=== PATIENT | female | born 1940 | race Caucasian/White ===

== ENCOUNTER 2023-12-01 14:04 | Outpatient (AMB) | payer MEDICARE, SELFPAY ==
--- NOTE | 2023-12-01 14:06 | MHC.OFFWIV ---
Intake Vital Signs 12/01/23 14:10 Height 5 ft 1 in Weight 124 lb BMI 23.4 BP 130/90 H Blood Pressure Location Lt brachial Position Sitting Pulse 112 H Pulse Source Pulse Oximeter Temp 97.5 F Temp Source Temporal Artery Scan Pulse Oximetry (%) 97 Oxygen Delivery Method Room Air Intake Visit Reasons: LINUX CONSULTANT Elevated BP 190/90/Head/heart racing Intake Note: pt is here today elevated 190/90 head heart racing yesterday Patient Tobacco Use Status: Never used Tobacco Allergies Penicillins [PCN] Allergy (Mild, Verified 12/01/23 14:15) RASH hydrochlorothiazide [HYDROCHLOROTHIAZIDE] Allergy (Unknown, Verified 12/01/23 14:15) RASH Do you need a note to return to daycare/school/sports/work: No HPI LINUX CONSULTANT Elevated BP 190/90/Head/heart racing HPI Details 83-year-old female presents to the office for a sick visit. Patient had a stressful event yesterday and felt her heart was pounding. She went home and fell asleep. She woke up this morning and still felt her heart was pounding a little. She went to her neighbor's house in her blood pressure was recorded 190/90. Patient comes in for a follow-up visit. Her agitation has reduced. She lives alone. She has no family members around here. Denies any chest pains or shortness of breath. No nausea or vomiting. [facility] Medical History (Updated 12/01/23 @ 15:01 by Brown Santana MD) Essential hypertension Atrial fibrillation Social History Patient Tobacco Use Status: Never used Tobacco Physical Exam Vital Signs: Last Vital Signs Temp 97.5 F 12/01/23 14:10 Pulse 112 H 12/01/23 14:10 BP 130/90 H 12/01/23 14:10 Pulse Ox 97 12/01/23 14:10 Oxygen Delivery Method Room Air 12/01/23 14:10 BMI result Body Mass Index 23.4 Const General: cooperative and healthy appearing Nutritional Appearance: well nourished Orientation/consciousness: patient oriented x3 Limitations: no limitations HEENT Head: Yes normal to inspection Eyes General: appearance normal, both eyes and all related structures Neck Neck: Yes normal visual inspection Chest Chest palpation & inspection: normal palpation of entire chest wall Resp Effort & Inspection: normal respiratory effort Neuro General: patient oriented x3 Office Procedures EKG Details: Atrial fibrillation. Rate is 104 per minute [id number], Complete Assessment & Plan Assessment & Plan (1) Atrial fibrillation: Code(s): I48.91 - Unspecified atrial fibrillation Plan: EKG shows new onset atrial fibrillation. Patient is unaware of a previous diagnosis. She lives alone and has no family members around here. She has a brother in [place]. Anticoagulants were started. Chads score is 2. Case was discussed with dairy feed mixing operator at [facility] was promised to see the patient in the coming week. Patient was advised to take the beta-ronaldo and other medications. Blood work has been ordered. Orders: Orders AMB EKG-In Office Today R07.9 - Chest pain, unspecified Lipid Panel Today I48.91 - Unspecified atrial fibrillation Thyroid Stimulating Hormone Today I48.91 - Unspecified atrial fibrillation Complete Blood Count no Diff Today I48.91 - Unspecified atrial fibrillation Basic Metabolic Panel Today I48.91 - Unspecified atrial fibrillation Liver Panel Today I48.91 - Unspecified atrial fibrillation Medications: New apixaban (Eliquis) 5 mg PO BID 30 tabs 0RF Coding Level of Care Code New Pt Level 4 (66491) Diagnoses Atrial fibrillation I48.91 CPT Codes EKG - CPT: 36833-[id number], Complete ([id number])
[2023-12-01 14:10] VITALS: BP 130/90; PULSE 112; TEMP 36.4; O2SAT 97; BMI 23.4
== END 2023-12-01 15:12 | disposition home or self-care (01) ==
PROVIDERS: PCP Hospitalist; Visit Provider Internal Medicine
DX: I48.91 Unspecified atrial fibrillation (principal)
CPT/HCPCS: 93000; 99204

== ENCOUNTER 2023-12-01 14:59 | Outpatient (REF) | payer MEDICARE, SELFPAY ==
[2023-12-01 17:12] LABS: Hematocrit 46.1 % (37.0-47.0); Hemoglobin 15.1 g/dl (12.0-16.0); Mean Corpuscular HGB Conc 32.8 g/dl (31.0-35.0); Mean Corpuscular Hemoglobin 30.3 pg (27.0-33.0); Mean Corpuscular Volume 92.6 fL (80.0-98.0); Mean Platelet Volume 9.9 fL (9.4-12.3); Platelet Count 307 X10*3/uL (160-400); Red Blood Count 4.98 X10*6/uL (4.20-5.50); Red Cell Distribution Width 12.5 % (11.0-16.0); White Blood Count 11.7 X10*3/uL (4.8-10.8)
[2023-12-01 17:14] LABS: Alanine Aminotransferase 11 U/L (0-31); Albumin Level 4.3 g/dL (3.5-5.0); Alkaline Phosphatase 44 U/L (39-117); Anion Gap 13 (12-20); Aspartate Amino Transferase 24 U/L (5-31); Bilirubin Direct 0.2 mg/dL (0.0-0.5); Bilirubin Total 0.4 mg/dL (0.0-1.0); Blood Urea Nitrogen 16 mg/dL (9-16); Calcium 10.4 mg/dL (8.4-10.2); Carbon Dioxide 28 mmol/L (22-29); Chloride 102 mmol/L (96-108); Cholesterol 240 mg/dL (<200); Estimated Glomerular Filt Rate 60; Glucose Random 112 mg/dL (60-115); HDL Cholesterol 51 mg/dL (>40); LDL Cholesterol Calculated 157 mg/dL (<100); Potassium 4.7 mmol/L (3.3-5.1); Sodium 138 mmol/L (135-145); Total Protein 7.9 g/dL (6.5-8.0); Triglycerides 164 mg/dL (<150)
[2023-12-01 17:30] LABS: Thyroid Stimulating Hormone 1.97 uIU/mL (0.32-4.0)
== END 2023-12-01 15:00 | disposition home or self-care (01) ==
LOC: HO.HMGCLDS 14:59
PROVIDERS: PCP Family Medicine; Visit Provider Internal Medicine
DX: I48.91 Unspecified atrial fibrillation (principal)
CPT/HCPCS: 36415; 80048; 80061; 80076; 84443; 85027

== ENCOUNTER 2023-12-06 10:34 | Outpatient (AMB) | payer MEDICARE, SELFPAY ==
--- NOTE | 2023-12-06 10:41 | A.OFFVIS_ITS ---
Intake Vital Signs 12/06/23 10:42 Height 5 ft 1 in Weight 121 lb 4.068 oz BMI 22.9 BP 180/90 H Blood Pressure Location Lt brachial Position Sitting Pulse 92 Intake Visit Reasons: NPV/V/ Intake Note: NPV Acoustical Carpenter Required: No Accompanied by: Self / Same As Patient Allergies Penicillins [PCN] Allergy (Mild, Verified 12/06/23 10:43) RASH hydrochlorothiazide [HYDROCHLOROTHIAZIDE] Allergy (Unknown, Verified 12/06/23 10:43) RASH Medication List - Last Reconciled 12/06/23 by Dav Bazan MD alprazolam 0.5 mg PO apixaban (Eliquis) 5 mg PO BID citalopram 20 mg PO DAILY lisinopril 30 mg PO DAILY metoprolol succinate ER 100 mg PO DAILY sulfasalazine 1,000 mg PO BID HPI HPI Comments History of Present Illness Details Brittanie is here for consultation regarding atrial fibrillation. Recently, she had an episode of palpitations and that led to urgent care visit. She was diagnosed with atrial fibrillation which is new finding. She states that she has not had this problem before. She thinks she was cleaning snow on the car day or so prior to that and she was doing very vigorously and hence she is wondering if that was reason. Any case, not entirely clear. No other complaints like angina or shortness of breath. No other cardiac issues. She is reasonably healthy for age. On medications for high blood pressure. Last week, it seems that she was started on Eliquis. She is on beta-blockers as well but apparently that is a long-term medication. [facility] Medical History (Updated 12/01/23 @ 15:01 by Brown Santana MD) Essential hypertension Atrial fibrillation Surgical History (Updated 12/06/23 @ 10:44 by Misa Harrington) No pertinent past surgical history Family History (Updated 12/06/23 @ 10:44 by Misa Harrington) Mother Heart problem Brother Heart problem Social History Patient Tobacco Use Status: Never used Tobacco Review of Systems Const Denies chills, Denies daytime sleepiness, Denies fatigue, Denies fever(s), Denies frequent falls, Denies night sweats, Denies snoring, Denies weakness, Denies weight gain and Denies weight loss Eyes Denies loss of vision ENT Denies dizziness and Denies hearing loss Card Denies chest pain, Denies chest pain with activity, Denies syncope, Denies rapid heart rate, Denies edema, Denies claudication, Denies leg edema, Denies lightheadedness, Denies palpitations, Denies dyspnea, Denies dyspnea on exertion and Denies orthopnea Resp Denies cough, Denies excessive phlegm production, Denies dyspnea, Denies dyspnea on exertion, Denies snoring and Denies wheezing GI Denies abdominal pain, Denies hematochezia, Denies change in bowel habits, Denies change in stool character, Denies heartburn, Denies nausea and Denies vomiting Denies hematuria, Denies urinary frequency and Denies dysuria Musc Denies arthralgias, Denies muscle weakness, Denies numbness and Denies tingling Skin/Breast Denies nail changes and Denies rash Neuro Denies Abnormal speech present, Denies dizziness, Denies syncope, Denies frequent falls, Denies loss of vision, Denies memory loss, Denies numbness, Denies tingling and Denies weakness Psych Denies depression and Denies memory loss Endo Denies fatigue and Denies palpitations Aller/Immun Denies wheezing Physical Exam Vital Signs: Last Vital Signs Pulse 92 12/06/23 10:42 BP 180/90 H 12/06/23 10:42 BMI result Body Mass Index 22.9 Const General: comfortable and no acute distress Orientation/consciousness: patient oriented x3 HEENT Other: Unremarkable Head: Yes normal to inspection Neck Neck: Yes normal visual inspection Chest Chest palpation & inspection: normal inspection of the chest Resp Auscultation: clear to auscultation bilaterally Cardio Palpation: normal PMI Heart sounds: S1 normal heart sound present, S2 normal heart sound present, no gallops, no murmurs and no rubs GI Palpation (GI): Soft to palpation Back/Spine/Pelvis Other: unremarkable Skin General skin exam: no rashes or lesions noted Neuro General: patient oriented x3 Speech: No Abnormal speech present Extrem General: Yes normal to inspection Psych Mental Status: mental status grossly normal Assessment & Plan Assessment & Plan (1) Atrial fibrillation: Code(s): I48.91 - Unspecified atrial fibrillation Plan: EKG from last week shows atrial fibrillation at a rate of 104/Min; can not exclude old septal infarct but could be from body habitus; nonspecific ST-T changes. We will arrange further workup with echocardiogram and Holter monitor. She is already on anticoagulation. Based on her age as well as weight, we can change Eliquis to 2.5 mg b.i.d.. If she is tachycardic on Holter, then may need to increase beta-blockers or add another agent like diltiazem or digoxin. (2) Essential hypertension: Code(s): I10 - Essential (primary) hypertension Plan: She states she is very anxious today. Last week, blood pressure was 130/90 mm Hg. Will need to keep an eye on this. May need more meds if the trend continues. Tried to reassure her as much. Orders: Orders CA echo transthoracic complete Today I48.91 - Unspecified atrial fibrillation ECG 3 day holter monitor Today I48.91 - Unspecified atrial fibrillation, R00.2 - Palpitations Medications: New apixaban (Eliquis) 2.5 mg PO BID 180 tabs 3RF 90 days I48.91 - Unspecified atrial fibrillation Discontinued apixaban (Eliquis) Discontinued Reason: Doctor's Order 5 mg PO BID 30 tabs 0RF Coding Level of Care Code New Pt Level 4 (28161) Diagnoses Atrial fibrillation I48.91 Essential hypertension I10
[2023-12-06 10:42] VITALS: BP 180/90; PULSE 92; BMI 22.9
== END 2023-12-06 10:57 | disposition home or self-care (01) ==
PROVIDERS: PCP Family Medicine; Visit Provider Internal Medicine
DX: I48.91 Unspecified atrial fibrillation (principal); I10 Essential (primary) hypertension
CPT/HCPCS: 99204

== ENCOUNTER → 2023-12-06 10:34 | Outpatient (BNVA) | payer MEDICARE, SELFPAY | PROVIDERS: PCP Family Medicine; Visit Provider Internal Medicine | DX: I48.91 Unspecified atrial fibrillation (principal); I10 Essential (primary) hypertension | CPT/HCPCS: 99202 ==

== ENCOUNTER → 2024-01-04 14:00 | Outpatient (REF) | payer MEDICARE, SELFPAY ==
--- NOTE | 2024-01-04 14:03 | CA_ITS ---
Transthoracic Echocardiogram Patient (Last, First, Middle): Brittanie Baltazar S Gender: Female Date of : 1940 Age: 83 Procedure Date: 01/04/2024 Procedure Type: Transthoracic Echocardiogram Location: OP Height: 154.94 cm Weight: 54.89 kg BSA: 1.53 m2 Heart Rate: bpm BP: 146 / 80 mmHg Technology Recruiter: TO Referring MD: Dav Bazan MD Symptoms: I48.91 - Unspecified atrial fibrillation Study Quality: Fair ECG Rhythm: Atrial Fibrillation Conclusions: - The left ventricular systolic function is hyperdynamic. The visually estimated ejection fraction is >70%. - There is moderate mitral annular calcification. There is mild mitral valve regurgitation. - The left atrium is severely dilated. Findings Left Ventricle Normal left ventricular cavity size. There is mildly increased left ventricular wall thickness. The left ventricular systolic function is hyperdynamic. The visually estimated ejection fraction is >70%. There is no evidence of regional wall motion abnormalities. Diastolic function is indeterminate on the basis of available data. Right Ventricle Normal right ventricular cavity size. There is moderately decreased right ventricular systolic function. Atria The left atrium is severely dilated. The right atrium is normal in size. Aortic Valve There is a normal trileaflet aortic valve. There is no aortic valve stenosis. There is no aortic valve regurgitation. Mitral Valve There is moderate mitral annular calcification. There is mild mitral valve regurgitation. There is no mitral valve stenosis. Pulmonic Valve There is trace to mild pulmonic valve regurgitation. Tricuspid Valve There is trace tricuspid valve regurgitation. There is no evidence of pulmonary hypertension. Great Vessels The asc aorta is normal in size. Venous The inferior vena cava is normal in size and collapses greater than 50% with inspiration. Pericardium/Pleural There is no evidence of pericardial effusion. Prior Study Comparison No prior study available for comparison. Measurements 2D Linear Measurements IVSd: 1.25 0.6-0.9/0.6-1.0 cm LVIDd: 3.69 3.9-5.3/4.2-5.9 cm LVIDd Index: 2.41 2.4-3.2/2.2-3.1 cm/m2 LVIDs: 2.27 2.0-3.6 cm LVPWd: 1.26 0.7-1.1 cm LA Diam: 3.50 2.7-3.8/3.0-4.0 cm LAIDs Index: 2.29 1.5-2.3 cm/m2 LV Mass: 195.61 67-162/88-224 g LV Mass Index: 127.85 43-95/49-115 g/m2 LVOT Diam: 1.90 3.0+(-)1.3 cm 2D Systolic Function EF 2C: 70.90 >55% Mitral Valve MV VTI: 0.22 MV Pk Norman: 1.47 MV Mn Norman: 0.93 MV Pk Grad: 9.00 MV Mn Grad: 4.00 MV Pk E: 1.17 MV Decel Time: 166.00 E'Lateral: 6.42 E'Medial: 5.58 E/E' Med: 21.00 E/E' Lat: 18.20 PHT: 49.00 MVA PHT: 4.49 MVA Continuity: 2.45 Decel Sandoval: 7.12 Aortic Valve AoV Pk Norman: 1.09 AoV Mn Norman: 0.81 AoV VTI: 0.21 AoV Pk Grad: 5.00 Aov Mn Grad: 3.00 SHAWANDA Cont.VTI: 2.61 LVOT LVOT Pk Norman: 0.95 LVOT Mn Norman: 0.69 LVOT VTI: 0.19 LVOT Pk Grad: 4.00 LVOT Mn Grad: 2.00 LVOT Diam: 1.90 LVOT Area: 2.84 Diastolic Function MV Pk E: 1.17 E'Medial: 5.58 E/E' Med: 21.00 E' Laterial: 6.42 E/E' Lat: 18.20 Right Ventricle TAPSE (mm): 11.40 TVS' Norman: 7.51 Tricuspid Valve TR Pk Norman: 2.30 TR Pk Grad: 21.00 RA Press: 3.00 RVSP: 24.00 Great Vessels Aorta Sinus of Valsalva: 2.95 2.0-3.5 cm Ao Asc: 2.80 2.1-3.4 cm Updated in Other Vendor System with Status of Final Dav Bazan MD electronically signed on 01/05/2024 9:15:51 AM with status of Final
--- NOTE | 2024-01-04 14:03 | HM_ITS ---
Conclusion: 1. Patient was monitored for total period of 3 days and 2 hours 2. Baseline was atrial fibrillation with average heart of 84 beats per minute with adequate rate control 3. No significant pauses noted 4. Rare PVCs noted 5. No patient reported events MTDD
== END ==
LOC: HO.CARD 14:00
PROVIDERS: PCP Family Medicine; Visit Provider Internal Medicine
DX: R00.2 Palpitations (principal); I48.91 Unspecified atrial fibrillation
CPT/HCPCS: 93242; 93306

== ENCOUNTER → 2024-01-04 14:03 | Outpatient (BNV) | payer MEDICARE, SELFPAY | PROVIDERS: PCP Family Medicine; Visit Provider Internal Medicine | DX: I48.91 Unspecified atrial fibrillation (principal) | CPT/HCPCS: 93244; 93306 ==

== ENCOUNTER 2024-02-01 13:40 | Outpatient (AMB) | payer MEDICARE, SELFPAY ==
--- NOTE | 2024-02-01 13:45 | MHC.OFFVIS ---
Intake Vital Signs 02/01/24 13:47 Height 5 ft 1 in Weight 123 lb 7.342 oz BMI 23.3 BP 156/86 H Blood Pressure Location Lt brachial Position Sitting Pulse 95 Intake Visit Reasons: 2 mth s/p echo/ holter Intake Note: 2 month follow up Financial Planning Consultant Required: No Allergies Penicillins [PCN] Allergy (Mild, Verified 02/01/24 13:48) RASH hydrochlorothiazide [HYDROCHLOROTHIAZIDE] Allergy (Unknown, Verified 02/01/24 13:48) RASH Medication List - Last Reconciled 02/01/24 by Dav Bazan MD alprazolam 0.5 mg PO apixaban (Eliquis) 2.5 mg PO BID 90 days citalopram 20 mg PO DAILY lisinopril 30 mg PO DAILY metoprolol succinate ER 100 mg PO DAILY sulfasalazine 1,000 mg PO BID HPI HPI Comments History of Present Illness Details Brittanie returns for follow-up. Recently seen in consultation regarding atrial fibrillation. She had palpitations and went to urgent care and was then diagnosed with atrial fibrillation. Overall, she feels fine. No clear-cut cardiac symptoms like angina or palpitations or anything else. Reasonably healthy for age. Blood pressure seems high but she has not really clear if it is always this way or not. She is on beta-blockers but that is something long-term. [facility] Medical History (Updated 02/01/24 @ 14:12 by Dav Bazan MD) Essential hypertension Atrial fibrillation Surgical History No pertinent past surgical history Family History Mother Heart problem Brother Heart problem Social History Patient Tobacco Use Status: Never used Tobacco Review of Systems Const Denies weakness ENT Denies dizziness Card Denies chest pain, Denies chest pain with activity, Denies syncope, Denies rapid heart rate, Denies pedal edema, Denies edema, Denies leg edema, Denies lightheadedness, Denies palpitations, Denies dyspnea, Denies dyspnea on exertion and Denies orthopnea Resp Denies cough, Denies dyspnea and Denies dyspnea on exertion GI Denies hematochezia and Denies change in stool character Musc Denies abnormal gait, Denies muscle cramps, Denies muscle weakness, Denies numbness, Denies radiating pain into limb and Denies tingling Neuro Denies abnormal gait, Denies dizziness, Denies syncope, Denies numbness, Denies tingling and Denies weakness Endo Denies palpitations Physical Exam Vital Signs: Last Vital Signs Pulse 95 02/01/24 13:47 BP 156/86 H 02/01/24 13:47 BMI result Body Mass Index 23.3 Const General: comfortable and no acute distress Orientation/consciousness: patient oriented x3 HEENT Other: Unremarkable Head: Yes normal to inspection Neck Neck: Yes normal visual inspection Chest Chest palpation & inspection: normal inspection of the chest Resp Auscultation: clear to auscultation bilaterally Cardio Palpation: normal PMI Heart sounds: S1 normal heart sound present, S2 normal heart sound present, no gallops, no murmurs and no rubs GI Palpation (GI): Soft to palpation Back/Spine/Pelvis Other: unremarkable Skin General skin exam: no rashes or lesions noted Neuro General: patient oriented x3 Extrem General: Yes normal to inspection Psych Mental Status: mental status grossly normal Assessment & Plan Assessment & Plan (1) Atrial fibrillation: Code(s): I48.91 - Unspecified atrial fibrillation Plan: Echocardiogram with hyperdynamic LVEF. Left atrium severely dilated. This may indicate chronicity. In the Holter, underlying rhythm is atrial fibrillation average rate of 84/Min. Reasonable rate control. About 7% of the time, rate is greater than 100/Min. We can probably go up on the beta-ronaldo dosing especially as the blood pressure is also high. (2) Essential hypertension: Code(s): I10 - Essential (primary) hypertension Plan: Blood pressure seems to be on the higher side. Today it is 156/86 mm Hg. Last time, it was 180/90 mm Hg. We will go up on the beta-ronaldo dosing. (3) Mitral annular calcification: Code(s): I34.81 - Nonrheumatic mitral (valve) annulus calcification Plan: There is no significant valvular dysfunction. No specific management. Medications: New metoprolol succinate ER (Toprol XL) Total 150mg (100mg+50mg) daily 50 mg PO DAILY 90 tabs 3RF 90 days Coding Level of Care Code Est Pt Level 4 (86167) Diagnoses Atrial fibrillation I48.91 Essential hypertension I10 Mitral annular calcification I34.81
[2024-02-01 13:47] VITALS: BP 156/86; PULSE 95; BMI 23.3
== END 2024-02-01 14:08 | disposition home or self-care (01) ==
PROVIDERS: PCP Family Medicine; Visit Provider Internal Medicine
DX: I48.91 Unspecified atrial fibrillation (principal); I10 Essential (primary) hypertension; I34.81 Nonrheumatic mitral (valve) annulus calcification
CPT/HCPCS: 99214

== ENCOUNTER → 2024-02-01 13:40 | Outpatient (BNVA) | payer MEDICARE, SELFPAY | PROVIDERS: PCP Family Medicine; Visit Provider Internal Medicine | DX: I48.91 Unspecified atrial fibrillation (principal); I10 Essential (primary) hypertension; I34.81 Nonrheumatic mitral (valve) annulus calcification | CPT/HCPCS: 99212 ==

== ENCOUNTER → 2024-04-25 13:47 | Outpatient (BNVA) | payer MEDICARE, SELFPAY | PROVIDERS: PCP Family Medicine; Visit Provider Nurse Practitioner Family ==

== ENCOUNTER 2024-06-01 14:03 | Outpatient (AMB) | payer MEDICARE, SELFPAY ==
[2024-06-01 14:25] VITALS: BP 152/80; PULSE 78; BMI 22.7
--- NOTE | 2024-06-01 14:25 | A.OFFVIS_ITS ---
Vital Signs 06/01/24 14:25 Height 5 ft 1 in Weight 120 lb 5.958 oz BMI 22.7 BP 152/80 H Blood Pressure Location Rt brachial Position Sitting Pulse 78 Pulse Source Monitor Intake Visit Reasons: r/s by pt Clay Roaster Required: No Allergies Penicillins [PCN] Allergy (Mild, Verified 06/01/24 14:27) RASH hydrochlorothiazide [HYDROCHLOROTHIAZIDE] Allergy (Unknown, Verified 06/01/24 14:27) RASH Medication List - Last Reconciled 06/01/24 by Mayelin Roy NP-C alprazolam 0.5 mg PO apixaban (Eliquis) 2.5 mg PO BID 90 days citalopram 20 mg PO DAILY lisinopril 30 mg PO DAILY metoprolol succinate ER (Toprol XL) 150 mg (3 x 50 mg) PO DAILY 90 days sulfasalazine 1,000 mg PO BID HPI HPI r/s by pt: Details: Brittanie is an 83-year-old female with past medical history of hypertension, atrial fibrillation who presents for follow-up. Today she reports she has been feeling well since her last visit in January. She does not notice heart palpitations. No chest discomfort at rest or with activity. No shortness of breath, PND, orthopnea or edema. No lightheadedness, presyncope, syncope, falls. Reports good activity tolerance. Lives alone has to manage her home and ADLs independently. Takes all meds as directed. No bleeding issues reported. [facility] Medical History Essential hypertension Atrial fibrillation Surgical History No pertinent past surgical history Family History Mother Heart problem Brother Heart problem Social History Patient Tobacco Use Status: Never used Tobacco Review of Systems Const All systems reviewed & are unremarkable except as noted in HPI and below ENT Denies dizziness Card Denies chest pain, Denies chest pain at rest, Denies chest pain with activity, Denies rapid heart rate, Denies pedal edema, Denies edema, Denies leg edema, Denies lightheadedness, Denies palpitations, Denies dyspnea, Denies dyspnea on exertion and Denies orthopnea Resp Denies cough, Denies dyspnea and Denies dyspnea on exertion GI Denies hematochezia and Denies change in stool character Musc Denies abnormal gait, Denies limited range of motion, Denies muscle cramps, Denies muscle weakness, Denies numbness, Denies radiating pain into limb, Denies stiffness and Denies tingling Neuro Denies abnormal gait, Denies dizziness, Denies numbness and Denies tingling Endo Denies palpitations Physical Exam Vital Signs: Last Vital Signs Pulse 78 06/01/24 14:25 BP 152/80 H 06/01/24 14:25 BMI result Body Mass Index 22.7 Const General: cooperative, healthy appearing, comfortable and no acute distress Orientation/consciousness: patient oriented x3 Neck Neck: Yes normal visual inspection and Yes no JVD Resp Effort & Inspection: normal respiratory effort Auscultation: clear to auscultation bilaterally, no rales, no rhonchi and no wheezes Cardio Jugular venous distension: no JVD Rate: regular rate Rhythm: abnormal rhythm Heart sounds: S1 normal heart sound present, S2 normal heart sound present, no murmurs and no rubs Neuro General: patient oriented x3 Extrem General: Yes normal to inspection and No no pedal edema Psych Appearance: grossly normal Mental Status: mental status grossly normal Speech and movement: Normal speech and movement present Office Procedures EKG Details: Today, read by me, atrial flutter with variable AV block left axis deviation can not exclude prior anterior septal infarct, rate 78, QTC 444 millisecond [id number], Complete Assessment & Plan Assessment & Plan (1) Atrial fibrillation: Code(s): I48.91 - Unspecified atrial fibrillation Category: Medical Plan: History of atrial fibrillation, asymptomatic. Unknown chronicity. Echocardiogram was done 01/04/2024 showing EF greater than 70%, moderate mitral annular calcification, mild mitral regurgitation, left atrium severely dilated. Atrial dilation could indicate that AFib has been more chronic. Holter monitor done 01/04/2024 for 3 days shows atrial fibrillation with average heart rate 84, 7% of the time greater than 100. On last visit her metoprolol dose was increased due to mildly elevated rates. Today she reports she has been feeling quite well with no concerning symptoms. She does not notice heart palpitations. She continues on metoprolol XL 150 mg daily. She is on Eliquis 2.5 mg b.i.d. for anticoagulation. That dose is appropriate for her age and weight. No medication changes made. Cardiology follow-up 6 months, sooner if needed. (2) Essential hypertension: Code(s): I10 - Essential (primary) hypertension Category: Medical Plan: Mildly elevated today. She denies being anxious at this visit. She did take her medications today. At this time will have her continue her metoprolol and lisinopril. She follows with her PCP routinely. If her blood pressure is elevated on follow-up with PCP then lisinopril dose can be further increased. (3) Mitral annular calcification: Code(s): I34.81 - Nonrheumatic mitral (valve) annulus calcification Category: Medical Plan: As above Plan Time spent on chart review, documentation, interview and assessment Coding Level of Care Code Est Pt Level 3 (76674) Diagnoses Atrial fibrillation I48.91 Essential hypertension I10 Mitral annular calcification I34.81 CPT Codes EKG - CPT: [id number], Complete ([id number]) Time Spent (min) 24
== END 2024-06-01 15:03 | disposition home or self-care (01) ==
PROVIDERS: PCP Family Medicine; Visit Provider Nurse Practitioner Family
DX: I48.91 Unspecified atrial fibrillation (principal); I10 Essential (primary) hypertension; I34.81 Nonrheumatic mitral (valve) annulus calcification
CPT/HCPCS: 93010; 99213

== ENCOUNTER → 2024-06-01 14:03 | Outpatient (BNVA) | payer MEDICARE, SELFPAY | PROVIDERS: PCP Family Medicine; Visit Provider Nurse Practitioner Family | DX: I48.91 Unspecified atrial fibrillation (principal); I10 Essential (primary) hypertension; I34.81 Nonrheumatic mitral (valve) annulus calcification | CPT/HCPCS: 93005; 99212 ==

== ENCOUNTER 2024-12-16 11:45 | Emergency (ER) | payer MEDICARE, SELFPAY ==
--- NOTE | ~2024-12-16 | CT_ITS ---
CLINICAL HISTORY: fall, head strike, on eliquis CT maxillofacial without contrast Comparison: None Findings: No acute fractures. Temporomandibular joints are intact. Paranasal sinuses and mastoid air cells clear. There is edema of the soft tissues within the left cheek and periorbital region. Visualized intracranial contents are within normal limits. No foreign bodies. IMPRESSION: No acute displaced facial bone fracture. This document has been electronically signed by: Rhoda Rueda MD on 12/16/2024 14:35:26
--- NOTE | ~2024-12-16 | CT_ITS ---
CLINICAL HISTORY: fall, head strike, on eliquis CT cervical spine without contrast Comparison: None Findings: Trace anterolisthesis of C3 on C4, C4 on C5 and C6 on C7. Multilevel degenerative disc disease and facet osteoarthritis. No significant central canal narrowing. No acute fractures or dislocations. Visualized intracranial contents are unremarkable. Soft tissues of the neck are normal. Emphysema and scarring at the left lung apex. No consolidation or pleural effusion. IMPRESSION: No cervical spine fracture. This document has been electronically signed by: Rhoda Rueda MD on 12/16/2024 14:37:27
--- NOTE | ~2024-12-16 | XR_ITS ---
CLINICAL HISTORY: fall onto chest 1 view chest x-ray Comparison: CR/SR - CHEST 1 VIEW - 11/04/19 18:31 EST Findings: Ill-defined opacities right lower lung and throughout the left lung. Bullous change in the left lateral lung again noted. No effusion or pneumothorax. Cardiomegaly. Suspected old right humeral neck fracture. Bones osteopenic. IMPRESSION: Multifocal lung opacities. This could represent edema and/or infection. Recommend follow-up. This document has been electronically signed by: Valorie Goins MD on 12/16/2024 16:04:40
--- NOTE | ~2024-12-16 | CT_ITS ---
CLINICAL HISTORY: fall, head strike, on eliquis CT head without contrast Comparison: None Findings: No intra-axial mass, midline shift, hydrocephalus, or acute hemorrhage. Involutional change brain parenchyma, compatible with age. Moderate white matter disease. Small chronic right frontal lobe infarct. There is no sinus or mastoid fluid. The orbits are within normal limits. Left periorbital soft tissue edema. No skull fracture. IMPRESSION: No skull fracture or intracranial hemorrhage. This document has been electronically signed by: Rhoda Rueda MD on 12/16/2024 14:38:15
--- NOTE | 2024-12-16 11:48 | ED.GENADULT ---
HPI - General Adult General Chief complaint: Head Injury Stated complaint: fall, head inj, eye swelling Time Seen by Provider: 12/16/24 12:00 Source: patient Mode of arrival: ambulatory Limitations: no limitations History of Present Illness ED Provider: MARIALIUSA Lewis HPI narrative: This is an 84-year-old female history of mitral annular calcification, hypertension, atrial fibrillation recently started on Eliquis presenting to the emergency department status post slip and fall yesterday she reports that she fell on the snow, hit her head on cement, did not lose consciousness. Since then she has been having significant bruising and swelling to the left eye and left side of forehead. She reports what prompted her to come in today is her face looked very swollen. She denies headache, vision changes, chest pain, shortness of breath, nausea, vomiting, abdominal pain, dizziness and weakness. Denies preceding symptoms to fall. Related Data Home Medications ?Medication ?Instructions ?Recorded ?Confirmed citalopram 20 mg tablet 20 mg PO DAILY 12/01/23 06/01/24 lisinopril 30 mg tablet 30 mg PO DAILY 12/01/23 06/01/24 sulfasalazine 500 mg 1,000 mg PO BID 12/01/23 06/01/24 tablet,delayed release alprazolam 0.5 mg tablet 0.5 mg PO 12/06/23 06/01/24 Previous Rx's ?Medication ?Instructions ?Recorded metoprolol succinate 50 mg 150 mg (3 x 50 mg) PO DAILY 90 02/22/24 tablet,extended release 24 hr days #270 tabs (Toprol XL) apixaban 2.5 mg tablet (Eliquis) 2.5 mg PO BID 30 days #60 tabs 12/11/24 Allergies Allergy/AdvReac Type Severity Reaction Status Date / Time Penicillins [PCN] Allergy Mild RASH Verified 12/16/24 11:51 hydrochlorothiazide Allergy Unknown RASH Verified 12/16/24 11:51 [HYDROCHLOROTHIAZIDE] Review of Systems Review of Systems: Yes all other systems are reviewed and are negative PMFSH Past Medical History Attestation statement: The following information was validated with the patient. Source: old records reviewed and nursing notes reviewed Medical History Essential hypertension Atrial fibrillation Surgical History No pertinent past surgical history Family History Family History Mother Heart problem Brother Heart problem Social History Social History Patient Tobacco Use Status: Never used Tobacco Smoked in Last 30 Days: No Advance Directives: No Advance Directives Information Provided: No Physical Exam ED Vital Signs: Vital Signs - 24 hr 12/16/24 11:49 12/16/24 13:55 12/16/24 15:07 Temperature 97.9 F 98.7 F 98.7 F Pulse Rate 91 85 85 Respiratory Rate 16 18 18 Blood Pressure 189/85 H 170/95 H 170/95 H Pulse Oximetry 97 94 94 Oxygen Delivery Method Room Air Room Air Room Air BMI result Body Mass Index 22.7 vss Appearance: Alert.? Oriented X3.? No acute distress.? Head: Normocephalic, atraumatic, no step-offs or deformities Eyes: Pupils equal, round and reactive to light.? Left-sided orbital ecchymosis, and edema. Extraocular movements intact and pain-free. She also has ecchymosis and swelling to the left side of forehead and temporal region. Neck: Normal inspection.? Neck supple.? No C-spine tenderness. CVS: Normal heart rate and rhythm.? Pulses normal.? Respiratory: No respiratory distress.? Breath sounds normal.? Abdomen: Soft and nontender.? Skin: Skin warm and dry.? Normal skin color.? Normal skin turgor.? Extremities: No lower extremity edema.? No calf ttp. 5/5 strength to bilateral upper and lower extremities Back: No midline tenderness, no C-spine tenderness, full range of motion, no CVA tenderness bilaterally Neuro: Oriented X 3.? No motor deficit.? No sensory deficit. CN 2-12 intact . Negative Romberg and pronator drift. Normal [id number]. Course Course Course Narrative: RME performed by Gwen Bernardo PA-C. Patient is an 84 year old assigned female at presenting to the emergency department with significant headache after a slip and fall. Patient states she is on Eliquis and fell, hitting her face on the pavement. Patient denies any loss of consciousness. Detailed physical exam and review of systems are deferred to the manager strategic alliances. Imaging and labs ordered. information director made aware. Reevaluation(s) Reevaluation #1: CBC unremarkable. Chemistry no acute findings needing intervention troponin negative, patient denies chest pain, shortness of breath and preceding symptoms to fall EKG nonischemic I explained to her we do a 2nd troponin and more imaging however she states she is anxious and wants to get out of here. She denies any complaints at this time. Coags unremarkable. CT head no skull fracture intracranial hemorrhage. CT cervical spine no cervical spine fractures. CT face no acute displaced facial bone fractures. Is edema of the soft tissues within the left cheek and periorbital region as expected based off patient's physical exam. Patient is adamant she would like to leave. At this time patient to be discharged home with strict return precautions. Educated patient on diagnosis and treatment plan, answered all question, patient verbalizes understanding. At this time patient will be discharged home, advised to return with new or worsening symptoms. Educated on worrisome signs and symptoms and when to return. At this time I feel comfortable discharge home. Time: 15:15 Medical Decision Making Medical Decision Making [facility] Narrative: 84-year-old female presents status post slip and fall. This happened yesterday. She is on blood thinners she does report head strike no loss of consciousness. Physical exam left orbital ecchymosis and edema as well as left-sided forehead ecchymosis, edema and left temporal ecchymosis and edema. Extraocular movements intact and pain-free neurological function intact. History and physical exam concerning for concussion with bruising likely secondary to patient being on blood thinners. Will rule out intracranial hemorrhage although less likely. Unlikely stroke. Will also rule out facial fractures. No neck pain however whiplash as possible. No signs of cervical myelopathy Plan labs, imaging. Differential Diagnosis Differential Diagnoses: The differential diagnosis associated with the presentation includes (History and physical exam concerning for concussion with bruising likely secondary to patient being on blood thinners. Will rule out intracranial hemorrhage although less likely. Unlikely stroke. Will also rule out facial fractures. No neck pain however whiplash as possible. No signs of cervica) Admission/Observation Consideration of admission/observation: Escalation of care including admission/observation considered Lab Data [facility] Lab Attestation statement: I reviewed the patient's lab results. 12/16/24 12:06 12/16/24 12:06 Labs: Lab Results 12/16/24 Range/Units 12:06 WBC 7.1 (4.8-10.8) X10*3/uL RBC 4.18 L (4.20-5.50) X10*6/uL Hgb 12.3 (12.0-16.0) g/dl Hct 37.2 (37.0-47.0) % MCV 89.0 (80.0-98.0) fL MCH 29.4 (27.0-33.0) pg MCHC 33.1 (31.0-35.0) g/dl RDW 13.5 (11.0-16.0) % Plt Count 225 D (160-400) X10*3/uL MPV 9.7 (9.4-12.3) fL Immature Gran % (Auto) 0.3 (0.0-0.4) % Neut % (Auto) 64.8 (45-73) % Lymph % (Auto) 24.4 (20-40) % [place] % (Auto) 8.2 (2-11) % Eos % (Auto) 1.4 (0-4) % Baso % (Auto) 0.9 (0-2) % Lymph # (Auto) 1.7 (1.2-4.9) X10*3/uL [place] # (Auto) 0.6 (0.1-1.2) X10*3/uL Eos # (Auto) 0.1 (0.0-0.4) X10*3/uL Baso # (Auto) 0.1 (0.0-0.2) X10*3/uL Abs Immat Gran (auto) 0.02 (0.00-0.03) X10*3/uL Absolute Neuts (auto) 4.6 (2.0-8.3) x10*3/uL Absolute Nucleated RBC 0.000 (0.0-0.012) X10*3/uL Nucleated RBC % (auto) 0.0 (0.0-0.2) /100WBC PT 13.7 H (10.9-12.4) SEC INR 1.2 H (0.9-1.1) APTT 31.4 (26.0-36.8) SEC Sodium 138 (135-145) mmol/L Potassium 4.0 (3.3-5.1) mmol/L Chloride 107 (96-108) mmol/L Carbon Dioxide 25 (22-29) mmol/L Anion Gap 10 L (12-20) BUN 14 (9-16) mg/dL Creatinine 0.84 (0.5-1.4) mg/dL Estim Creat Clear Calc 36.2 Estimated GFR > 60 Random Glucose 110 (60-115) mg/dL Calcium 9.2 D (8.4-10.2) mg/dL Magnesium 1.9 (1.6-2.6) mg/dL Total Bilirubin 0.7 (0.0-1.0) mg/dL AST 22 (5-31) U/L ALT 11 (0-31) U/L Alkaline Phosphatase 45 (39-117) U/L Troponin I High Sens 3.6 (<3.5-17.0) ng/L Total Protein 7.2 (6.5-8.0) g/dL Albumin 3.8 (3.5-5.0) g/dL Independent Interpretation I performed an independent interpretation of an: EKG Radiology Impression Discussion of test interpretation with radiology: I have reviewed the radiologist's reading. External Record Review External record reviewed: Inpatient record, Office record, Outpatient record, Prior outpatient labs, Prior outpatient radiology, Primary care record and Outside ED record Chronic Conditions Patient?s care impacted by: Other (see hpi ) Critical Care Time Critical Care Time Critical Care Time: No Discharge Plan Discharge Clinical Impression: Chronic anticoagulation, Fall, Traumatic ecchymosis of left orbit, Concussion Patient Disposition: Home, Self-Care Instructions: Concussion (ED), Post Concussion Syndrome (ED), Fall Prevention (ED), Blood Thinners (ED) Additional Instructions: Take your medications as prescribed. If you were prescribed antibiotics today, it is important that you take your medication to their entirety, do not skip any doses, do not finish them early. Follow-up with your primary care provider this week. Return to the emergency department with new or worsening symptoms. Such as fevers, chills, chest pain, shortness of breath, nausea, vomiting, dizziness, headache, vision changes, lethargy In case of emergency call 911 Prescriptions: No Action metoprolol succinate [Toprol XL] 50 mg tablet extended release 24 hr 150 mg PO DAILY 90 Days Qty: 270 3RF Rx Instructions: Total 150mg (100mg+50mg) daily Eliquis 2.5 mg tablet 2.5 mg PO BID 30 Days Qty: 60 5RF sulfasalazine 500 mg tablet,delayed release (DR/EC) 1,000 mg PO BID lisinopril 30 mg tablet 30 mg PO DAILY citalopram 20 mg tablet 20 mg PO DAILY alprazolam 0.5 mg tablet 0.5 mg PO Referrals: Heron Taylor MD [Primary Care Provider] - 2 days Stand Alone Forms: Work/School Release Interventions: ED Discharge Assessment Last Done: 12/16/24 15:07 Print Language: German
[2024-12-16 11:49] VITALS: BP 189/85; PULSE 91; RESP 16; TEMP 36.6; O2SAT 97; BMI 22.7
[2024-12-16 12:14] LABS: Basophils Absolute Auto 0.1 X10*3/uL (0.0-0.2); Basophils Percent Auto 0.9 % (0-2); Eosinophils Absolute Auto 0.1 X10*3/uL (0.0-0.4); Eosinophils Percent Auto 1.4 % (0-4); Hematocrit 37.2 % (37.0-47.0); Hemoglobin 12.3 g/dl (12.0-16.0); Imm Gran Abs Auto 0.02 X10*3/uL (0.00-0.03); Imm Gran Pct Auto 0.3 % (0.0-0.4); Lymphocytes Absolute Auto 1.7 X10*3/uL (1.2-4.9); Lymphocytes Percent Auto 24.4 % (20-40); MANUAL DIFF FLAG NO; Mean Corpuscular HGB Conc 33.1 g/dl (31.0-35.0); Mean Corpuscular Hemoglobin 29.4 pg (27.0-33.0); Mean Platelet Volume 9.7 fL (9.4-12.3); Monocytes Absolute Auto 0.6 X10*3/uL (0.1-1.2); Monocytes Percent Auto 8.2 % (2-11); Neutrophils Absolute Auto 4.6 x10*3/uL (2.0-8.3); Neutrophils Percent Auto 64.8 % (45-73); Platelet Count 225 X10*3/uL (160-400); Red Blood Count 4.18 X10*6/uL (4.20-5.50); Red Cell Distribution Width 13.5 % (11.0-16.0); White Blood Count 7.1 X10*3/uL (4.8-10.8)
[2024-12-16 12:20] LABS: INTERNATIONAL NORM RATIO 1.2 (0.9-1.1); Prothrombin Time 13.7 SEC (10.9-12.4)
[2024-12-16 12:23] LABS: Partial Thromboplastin Time 31.4 SEC (26.0-36.8)
--- NOTE | 2024-12-16 12:27 | ECG_ITS ---
Test Reason : fall Blood Pressure : */* mmHG Vent. Rate : 87 BPM Atrial Rate : 288 BPM P-R Int : * ms QRS Dur : 82 ms QT Int : 388 ms P-R-T Axes : * -28 14 degrees QTcB Int : 466 ms Atrial flutter with variable A-V block Abnormal ECG When compared with ECG of 25-Jul-2020 13:14, Atrial flutter has replaced Sinus rhythm Referred By: Luisana Lewis Electronically Signed By: Ede Cevallos
[2024-12-16 12:30] LABS: Alanine Aminotransferase 11 U/L (0-31); Albumin Level 3.8 g/dL (3.5-5.0); Alkaline Phosphatase 45 U/L (39-117); Anion Gap 10 (12-20); Aspartate Amino Transferase 22 U/L (5-31); Bilirubin Total 0.7 mg/dL (0.0-1.0); Blood Urea Nitrogen 14 mg/dL (9-16); Calcium 9.2 mg/dL (8.4-10.2); Carbon Dioxide 25 mmol/L (22-29); Chloride 107 mmol/L (96-108); Creatinine Clr Calc Pharmacy 36.2; Estimated Glomerular Filt Rate > 60; Glucose Random 110 mg/dL (60-115); Magnesium 1.9 mg/dL (1.6-2.6); Sodium 138 mmol/L (135-145); Total Protein 7.2 g/dL (6.5-8.0)
[2024-12-16 12:49] LABS: Troponin-I High Sensitivity 3.6 ng/L (<3.5-17.0)
[2024-12-16 13:55] VITALS: BP 170/95; PULSE 85; RESP 18; TEMP 37.1; O2SAT 94
[2024-12-16 15:07] VITALS: BP 170/95; PULSE 85; RESP 18; TEMP 37.1; O2SAT 94
[2024-12-16 15:13] VITALS: BP 182/103; PULSE 84
[2024-12-16] MEDS: lisinopriL 10 MG TABLET 30 MG PO (15:13)
[2024-12-16] MEDS: Metoprolol Succinate ER 50 MG TAB.ER.24H 150 MG PO (15:13)
== END 2024-12-16 15:46 | disposition home or self-care (01) ==
PROVIDERS: Physician Assistant; Physician Assistant Medical; Emergency Provider Emergency Medicine; PCP Family Medicine
DX: S06.0X0A Concussion without loss of consciousness, initial encounter (principal); S05.12XA Contusion of eyeball and orbital tissues, left eye, initial encounter; W00.0XXA Fall on same level due to ice and snow, initial encounter; Y93.9 Activity, unspecified; Y92.89 Other specified places as the place of occurrence of the external cause; Y99.9 Unspecified external cause status
CPT/HCPCS: 36415; 70450; 70486; 71045; 72125; 80053; 83735; 84484; 85025; 85610; 85730; 93005; 99284; 99285

== ENCOUNTER → 2024-12-16 11:49 | Outpatient (BNV) | payer MEDICARE, SELFPAY | PROVIDERS: Emergency Provider Emergency Medicine; PCP Family Medicine; Visit Provider Radiology Diagnostic Radiology | DX: S09.90XA Unspecified injury of head, initial encounter (principal); W19.XXXA Unspecified fall, initial encounter; Z79.01 Long term (current) use of anticoagulants; R91.8 Other nonspecific abnormal finding of lung field; S09.93XA Unspecified injury of face, initial encounter; R52 Pain, unspecified | CPT/HCPCS: 70450; 70486; 71045; 72125 ==

== ENCOUNTER → 2024-12-16 12:27 | Outpatient (BNV) | payer MEDICARE, SELFPAY | PROVIDERS: Emergency Provider Emergency Medicine; PCP Family Medicine; Visit Provider Internal Medicine Cardiovascular Disease | DX: I48.92 Unspecified atrial flutter (principal); R94.31 Abnormal electrocardiogram [ECG] [EKG] | CPT/HCPCS: 93010 ==

== ENCOUNTER 2025-02-05 12:43 | Emergency (ER) | payer MEDICARE, SELFPAY ==
--- NOTE | ~2025-02-05 | CT_ITS ---
EXAMINATION: CT HEAD AND FACIAL BONES WITHOUT CONTRAST CLINICAL INFORMATION: Fall, facial ecchymosis. COMPARISON: 12/16/2024. TECHNIQUE: Contiguous axial imaging was performed from the skull base to vertex, as well as the maxillofacial bones/mandible without intravenous administration of contrast. Multiplanar reformatted imaging was constructed from the axial data set. This CT examination was performed using dose optimization techniques as appropriate, variously including the following: *Automated exposure control *Adjustment of mA and/or kV according to patient size (this includes techniques or standardized protocols for targeted exams where dose is matched to indication/reason for exam; i.e. extremities or head) *Use of iterative reconstruction technique CT HEAD: There is no evidence of intracranial hemorrhage or extra-axial fluid collection. There is no mass effect, or edema. No CT evidence of acute territorial infarct. Ventricles, sulci, and cisterns are normal in size and configuration for patient age. No hydrocephalus. No midline shift. Negative hyperdense MCA sign. Negative insular ribbon sign. Mild to moderate supratentorial white matter hypodensities in keeping with small vessel ischemic changes. 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 Normal pituitary. Mild atheromatous calcification of the carotid siphons bilaterally. Globes and orbital contents image normally. There are senile calcifications. There is mild left frontal scalp soft tissue swelling. The calvarium and skull base are intact without fracture. CT MAXILLOFACIAL BONES: The mandible is intact without fracture. The TM joints are normally oriented. The nasal bones, nasal process, maxilla, orbits, zygomatic arches, pterygoid plates, and sphenoid bone are intact without fracture. No significant nasal septal deviation. Paranasal sinuses are normally pneumatized throughout. No paranasal sinus fractures. The mastoids and tympanic cavities are normally aerated. Imaged maxillofacial/neck soft tissues appear normal. CT/CT facial bones wo IV con IMPRESSION: 1. No acute intracranial abnormalities. Chronic findings as discussed. 2. No acute calvarial or skull base fractures seen. 2. No acute maxillofacial fracture evident. 3. There is mild left inferior frontal scalp soft tissue swelling. Electronically signed by: Marin Lowry MD 02/05/2025 03:03 PM EDT
--- NOTE | ~2025-02-05 | CT_ITS ---
EXAMINATION: CT CERVICAL SPINE WITHOUT CONTRAST CLINICAL INFORMATION: Status post fall. COMPARISON: December 16, 2024. TECHNIQUE: Contiguous axial images through the cervical spine using 3 mm collimation with bone and soft tissue algorithm. Sagittal and coronal reformatted images acquired. This CT examination was performed using dose optimization techniques as appropriate, variously including the following: *Automated exposure control *Adjustment of mA and/or kV according to patient size (this includes techniques or standardized protocols for targeted exams where dose is matched to indication/reason for exam; i.e. extremities or head) *Use of iterative reconstruction technique. DLP: 236.48 mGy centimeter. FINDINGS: Craniocervical junction is intact. Degenerative changes in the periodontal C1 region. Marginal osteophyte formation and endplate sclerosis decreased intervertebral disc height ends condyle cyst formation at C5-C6. Grade 1 anterolisthesis C4-5 and C6-7 levels and to a lesser extent C7-T1. Bilateral facet joint hypertrophy, C3 C7. C1 is intact. C2 is intact. C3 is intact. C4 is intact. C5 is intact. C6 is intact. C7 is intact. No prevertebral compartment hematoma. Calcified plaques in the carotid bulbs and proximal ICAs bilaterally. Bilateral apical lung scarring. Mild paraseptal emphysematous changes, upper lungs. CT/CT cervical spine wo IV con IMPRESSION: No acute fracture. Cervical spondylosis C5-6. Grade 1 anterolisthesis on a degenerative basis, C4-5 C6-7 and C7-T1. Atherosclerosis disease. Fleischner guidelines were followed. Electronically signed by: Jerson Nieto MD 02/05/2025 03:10 PM EDT
[2025-02-05 12:58] VITALS: BP 188/89; PULSE 101; RESP 18; TEMP 36.6; O2SAT 96; BMI 22.3
--- NOTE | 2025-02-05 13:07 | ED_ITS ---
HPI - General Adult General Chief complaint: Head Injury Stated complaint: Head Injury 02/04/25 Sent by PCP Time Seen by Provider: 02/05/25 16:10 History of Present Illness ED Provider: Terrence FELDER narrative: the patient is an 84-year-old female who was on apixaban because of atrial fibrillation. She lives alone in her own apartment. She says that 2 nights ago on Wednesday evening she bent over with then lost her balance and fell forward striking her face against a rug. She thought that she had a rug burn to her left upper face. She had no loss of consciousness. She lay on the floor for awhile but was able to get herself up. She had some bruising and mild discomfort to her left face yesterday but went about her activities as normal. She told some friends about what had happened and she was ultimately convinced that she should come to the emergency room to get checked. She came here today for that reason. She drove herself to the emergency room today. She has a mild discomfort to the skin of the face but no headache or any other significant symptoms. She says she feels quite well and felt comfortable driving. She also says that she did not take her usual medications this morning because she was so concerned about coming to the hospital to get checked. Related Data Home Medications ?Medication ?Instructions ?Recorded ?Confirmed citalopram 20 mg tablet 20 mg PO DAILY 12/01/23 06/01/24 lisinopril 30 mg tablet 30 mg PO DAILY 12/01/23 06/01/24 sulfasalazine 500 mg 1,000 mg PO BID 12/01/23 06/01/24 tablet,delayed release alprazolam 0.5 mg tablet 0.5 mg PO 12/06/23 06/01/24 Previous Rx's ?Medication ?Instructions ?Recorded metoprolol succinate 50 mg 150 mg (3 x 50 mg) PO DAILY 90 02/22/24 tablet,extended release 24 hr days #270 tabs (Toprol XL) apixaban 2.5 mg tablet (Eliquis) 2.5 mg PO BID 30 days #60 tabs 12/11/24 Allergies Allergy/AdvReac Type Severity Reaction Status Date / Time Penicillins [PCN] Allergy Mild RASH Verified 02/05/25 13:04 hydrochlorothiazide Allergy Unknown RASH Verified 02/05/25 13:04 [HYDROCHLOROTHIAZIDE] Review of Systems Review of Systems: Yes all other systems are reviewed and are negative [facility] Past Medical History Medical History Essential hypertension Atrial fibrillation Surgical History No pertinent past surgical history Family History Family History Mother Heart problem Brother Heart problem Social History Social History Patient Tobacco Use Status: Never used Tobacco Advance Directives: No Advance Directives Information Provided: Yes Physical Exam ED Vital Signs: Vital Signs - 24 hr 02/05/25 15:14 02/05/25 15:54 02/05/25 16:31 Temperature 99.1 F 98.6 F 98.6 F Pulse Rate 101 H 99 99 Respiratory Rate 18 16 16 Blood Pressure 214/103 H 215/108 H 215/108 H Pulse Oximetry 95 97 97 Oxygen Delivery Method Room Air Room Air Room Air BMI result Body Mass Index 22.3 Const Other: The patient is an older woman who was awake and alert. She is well-groomed. She has some slight bruising to the left periorbital skin on her face. Otherwise she is awake and alert and does not seem ill or unwell in any way. HENMT Other: There is some ecchymotic skin changes to the left periorbital region, mostly on the forehead. No raccoon eyes. No herman sign. No gross deformities. Eyes Other: There is some bruising to the skin around the left periorbital region, mostly on the forehead. However the eyes themselves are unremarkable. There was no eyelid swelling. No ocular injury. Pupils are round equal, extraocular movements are intact, conjunctivae are clear Neck Other: no remarkable posterior C-spine tenderness. Good range of motion of the neck Resp Effort & Inspection: normal respiratory effort Auscultation: clear to auscultation bilaterally Cardio Other: the patient has an irregular rate and rhythm, no murmur heard. GI Other: Abdomen is soft and nontender Skin Other: there is some mild ecchymotic skin changes around the left eye at the cheek in the forehead. The skin is otherwise unremarkable. Neuro Other: The patient is awake and alert with a normal mental status. Cranial nerves 2- 12 are intact. She moves her extremities normally. She has a normal gait. Extrem Other: No signs of injury to the extremities Course Course Course Narrative: RME: 84 yold female with pmh of HTN presents to the ED for facial trauma. Patient states she fell on Wednesday while bending down she tripped and hit her face on the ground. Patient denies loss of consciousness. Patient is on Eliquis. Patient was sent to the ED by a friend to rule out brain bleed. Patient denies having chest pain nausea vomiting dizziness before fall or after the fall. CT scans ordered. Blood pressure is elevated. Charge nurse made aware of patient's blood pressure and history for patient to be brought to the ED soon as possible. Negative for any neuro deficits Medical Decision Making Medical Decision Making MDM Narrative: the patient is an 84-year-old woman on anticoagulation who fell at her home 2 days ago, landing on her face. She had CT scans of her head, face, and cervical spine ordered at triage. These are all unremarkable. The patient was reassured. The patient is hypertensive in the emergency department but she has no symptoms I would attribute to her hypertension. Additionally the patient said she did not take her regular morning anti hypertensive medications this morning. She would like to be discharged so she can take her medications at home. I think this is reasonable. Discharge Plan Discharge Clinical Impression: Head injury, Fall, Facial bruising, High blood pressure Patient Disposition: Home, Self-Care Additional Instructions: Your testing in the emergency room today is reassuring. Your scans did not show any concerning injuries. Please resume your regular blood pressure medications when you get home. Please follow up with your regular doctor if you have any ongoing concerns or if your blood pressure remains high even when you are taking your medications. Return to the emergency room if significantly worse. Prescriptions: No Action metoprolol succinate [Toprol XL] 50 mg tablet extended release 24 hr 150 mg PO DAILY 90 Days Qty: 270 3RF Rx Instructions: Total 150mg (100mg+50mg) daily Eliquis 2.5 mg tablet 2.5 mg PO BID 30 Days Qty: 60 5RF sulfasalazine 500 mg tablet,delayed release (DR/EC) 1,000 mg PO BID lisinopril 30 mg tablet 30 mg PO DAILY citalopram 20 mg tablet 20 mg PO DAILY alprazolam 0.5 mg tablet 0.5 mg PO Referrals: Heron Taylor MD [Primary Care Provider] - ( Fall, facial bruising, hypertension) Interventions: ED Discharge Assessment Last Done: 02/05/25 16:31 Discharge Date/Time: 02/05/25 16:31 Print Language: [place]
[2025-02-05 15:14] VITALS: BP 214/103; PULSE 101; RESP 18; TEMP 37.3; O2SAT 95
--- NOTE | 2025-02-05 15:15 | PC.NURSE ---
didn't take HTN Meds this am.
[2025-02-05 15:54] VITALS: BP 215/108; PULSE 99; RESP 16; TEMP 37; O2SAT 97
[2025-02-05 16:31] VITALS: BP 215/108; PULSE 99; RESP 16; TEMP 37; O2SAT 97
--- OUTSIDE RECORDS SUMMARY | 2025-02-05 17:27 | XMS_ITS | Data Portability ---
Author Organization [facility] [employer] [facility], [address] Address [address] [place] [address] Assessment No assessment recorded. Plan of Treatment Reminders Order Date Submit Date Provider Last Modified By Organization Details Last Modified Time Details Appointments None recorded. Lab rapid SARS CoV 2 Ag, QL IA, respiratory specimen 2022 023 shamar _[facility], [address] [place] [address], [phone], 3 10:56:14 rapid flu (A+B) 2022 023 zack _[facility], [address] [place] [address], [phone], 3 10:56:14 Referral None recorded. Procedures None recorded. Surgeries None recorded. Imaging None recorded. Medication Orders prednisone 20 mg tablet 2022 023 [id number], [address] [place], [address], 3 10:56:16 Allergy Relief (fluticason e) 50 mcg/actuati on nasal spray,suspe nsion 2022 023 [id number], [address] [place], [address], 3 10:56:16 Patient TargetsNo targets recorded. Patient Instructions Encounter Date Encounter Id Patient Instructions Last Modified By Organization Details Last Modified Time 11/27/2022 [id number] Acute Sinusitis: Care Instructions shamar Not available 11/27/2022 10:56:14 Sinusitis is an infection of the lining of the sinus cavities in your head. Sinusitis often follows a cold. It causes pain and pressure in your head and face. In most cases, sinusitis gets better on its own in 1 to 2 weeks. But some mild symptoms may last for several weeks. Sometimes antibiotics are needed. if you are having problems. It's also a good idea to know your test results and keep a list of the medicines you take. How can you care for yourself at home? Take an sutb-ttg-frrlqqw pain medicine. Avoid Ibuprofen, Aleve and Aspirin if . If the doctor prescribed antibiotics, take them as directed. Do not stop taking them just because you feel better. You need to take the full course of antibiotics. Be careful when taking aktn-qjj-syxzwjv cold or influenza (flu) medicines and Tylenol at the same time. Many of these medicines have acetaminophen, which is Tylenol. Read the labels to make sure that you are not taking more than the recommended dose. Too much acetaminophen (Tylenol) can be harmful. Breathe warm, moist air from a steamy shower, a hot bath, or a sink filled with hot water. Avoid cold, dry air. Using a humidifier in your home may help. Follow the directions for cleaning the machine. Use saline (saltwater) nasal washes. This can help keep your nasal passages open and wash out mucus and bacteria. You can buy saline nose drops at a grocery store or drugstore. Or you can make your own at home by adding 1 teaspoon (5 millilitres) of salt and 1 teaspoon (5 millilitres) of baking soda to 2 cups (500 mL) of distilled water. If you make your own, fill a bulb syringe with the solution, insert the tip into your nostril, and squeeze gently. Blow your nose. Put a hot, wet towel or a warm gel pack on your face 3 or 4 times a day for 5 to 10 minutes each time. Try a decongestant nasal spray like oxymetazoline (Drixoral). Do not use it for more than 3 days in a row. Using it for more than 3 days can make your congestion worse. Not available 11/27/2022 10:55:08 If you test positive for COVID-19, stay home for at least 5 days and isolate from others in your home. You are likely most infectious during these first 5 days. Wear a high-quality mask if you must be around others at home and in public. Do not go places where you are unable to wear a mask. For travel guidance, see CDC? s Travel webpage. Do not travel. Stay home and separate from others as much as possible. Use a separate bathroom, if possible. Take steps to improve ventilation at home, if possible. Don? t share personal household items, like cups, towels, and utensils. Monitor your symptoms. If you have an emergency warning sign (like trouble breathing), seek emergency medical care immediately. If you had symptoms and: Your symptoms are improving You may end isolation after day 5 if: You are fever-free for 24 hours (without the use of fever-reducing medication). Your symptoms are not improving Continue to isolate until: You are fever-free for 24 hours (without the use of fever-reducing medication). Your symptoms are improving. Regardless of when you end isolation Until at least day 11: Avoid being around people who are more likely to get very sick from COVID-19. Remember to wear a high-quality mask when indoors around others at home and in public. Do not go places where you are unable to wear a mask until you are able to discontinue masking (see below). For travel guidance, see CDC? s Travel webpage. Not available 11/27/2022 10:54:01 Reason for Referral None Reported. Results Created Date Observation Date Name Description Value Unit Range Abnormal Flag Note LastModifiedBy Organization Detail LastModifiedTime 11/27/1911/27/2022 rapid SARS CoV 2 Ag, QL IA, respi rator y speci men Unknown Analyte Normal =Negat gricelda Not Available [facility] [address] [place] [address], [phone], 11/27/2022 10:09:58 11/27/19 23 11/27/2022 rapid SARS CoV 2 Ag, QL IA, respi rator y speci men Unknown Analyte negati ve Not Available [facility] [place], [phone], 11/27/2022 10:09:58 11/27/19 23 11/27/2022 rapid flu (A+B) Unknown Analyte Normal = Negati ve Not Available [address] [address], [place], [address], 11/27/2022 10:09:51 11/27/19 23 11/27/2022 rapid flu (A+B) Unknown Analyte Normal = Negati ve Not Available [address] [place], [place] [address]alessandra lomas [address], [phone], 11/27/2022 10:09:51 11/27/19 23 11/27/2022 rapid flu (A+B) Unknown Analyte negati ve Not Available [address] [place] [address], [phone], 11/27/2022 10:09:51 11/27/19 23 11/27/2022 rapid flu (A+B) Unknown Analyte negati ve Not Available [address] [place] [address], [place], [address], 11/27/2022 10:09:51 Result Notes None recorded. Problems Name Problem SNOMED Code Status Onset Date Resolution Date Notes Provider Name and Address Organization Details Recorded Time Arthritis 1773200 Active 2022 IRIS COUVERTIE R null, [place] - [facility] 3 10:09:11 Essential hypertension 94332994 Active 2022 IRIS COUVERTIE R null, PA - [facility] 3 10:09:14 Insomnia 923209377 Active 2022 IRIS COUVERTIE R null, PA - [facility] 3 10:09:06 Problem Notes None recorded. Procedures Surgical History Date Name Laterality Status Provider Name and Address Organization Details Recorded Time appendectomy completed IRIS ALEXVERTHENOK Fischer A - [facility] 11/27/2022 10:09:43 Imaging Results None recorded. Procedure Notes None recorded. Medical Equipment None Reported. Allergies Allergen ID Allergen Name Allergen Category Reaction Reaction Severity Criticality Documentation Date Start Date Code Code System Note Provider Name and Address Organization Details Recorded Time 372653 Product containin g penicilli n (product) medicatio n rash moderate low 11/27/2022 99738 8001 SNOMED JANEEN ALEXAUREA campbell, [place] - [facility] 3 10:06:55 054351 hydrochlo rothiazid e medicatio n Not available Not available Not available 11/27/2022 5487 RxNorm JANEEN ALEXAUREA campbell, [place] - [facility] 3 10:07:11 Medications Name Sig Start Date Stop Date Status Note LastModified by Organization Details LastModified Time trazodone 50 mg tablet TAKE 1 TABLET BY MOUTH AT BEDTIME NEEDED FOR INSOMNIA 11/27 completed Not Available Not Available Not Available lisinopril 20 mg tablet TAKE 1 TABLET BY MOUTH EVERY DAY active Not Available Not Available No t Available prednisone 20 mg tablet Take 2 tablets every day by oral route in the morning for 3 days. 2022 active Not Available Not Available Not Avai lable metoprolol succinate ER 100 mg tablet,exte nded release 24 hr TAKE 1 TABLET BY MOUTH EVERY DAY active Not Available Not Available No t Available sulfasalazi ne 500 mg tablet,barry yed release TAKE 2 TABLETS BY MOUTH TWICE A DAY active Not Available Not Available No t Available erythromyci n 250 mg tablet TAKE 1 TABLET BY MOUTH 3 TIMES A DAY UNTIL FINISHED 11/27 completed Not Available Not Available Not Available alprazolam 0.5 mg tablet TAKE 1-2 TABLETS BY MOUTH ONCE DAILY AT BEDTIME NEEDED active Not Available Not Available No t Available citalopram 20 mg tablet TAKE 1 TABLET BY MOUTH EVERY DAY active Not Available Not Available No t Available lisinopril 30 mg tablet TAKE 1 TABLET BY MOUTH EVERY DAY 11/27 completed Not Available Not Available Not Available fluticasone propionate 50 mcg/actuati on nasal spray,suspe nsion SPRAY 1 SPRAY BY INTRANASA L ROUTE TWICE A DAY FOR 30 DAYS active Not Available Not Available No t Available Vitals Date Recorded Body height Body mass index (BMI) Body weight Body temperature Respiratory rate Heart rate Oxygen saturation Oxygen saturation in Arterial blood by Pulse oximetry Systolic blood pressure Diastolic blood pressure Provider Name and Address Organization Details Last Updated DateTime 3 154.94 cm 23.1 kg/m2 29582.2 7 g 97.8 [degF] 18 /min 60 /min 99 % 99 % 148 mm[Hg] 69 mm[Hg] JANEEN WASHINGTON Alexis PA - [facility] 3 10:11:09 Social History Question Answer Notes LastModified by Organizat ion Details LastModified Time Tobacco Smoking Status Former Smoker MARIALUISA Paniagua - [facility] 11/27/2022 10:09:30 What Is Your Level Of Alcohol Consumption? None Information not available 11/27/2022 What Is Your Water Source? City Information not available 11/27/2022 What Is Your Heat Source? Gas Information not available 11/27/2022 Have You Had Direct Contact, Or Contact During Intimacy, With Monkeypox Rash, Scabs, Or Body Fluids From A Person With Monkeypox? No Information not available 11/27/2022 Do You Use Any Illicit Or Recreational Drugs? No Information not available 11/27/2022 Have You Recently Traveled Abroad? No Information not available 11/27/2022 Do You Or Have You Ever Used Any Other Forms Of Tobacco Or Nicotine? No Information not available 11/27/2022 Sex: Unknown Functional Status None recorded. Mental Status None recorded. Family History Relationship Description Onset Age of this Age Resolved Age Notes LastModified by Organization Details LastModified Time Father No current problems or disability Not available 10:09:17 Mother No current problems or disability Not available 10:09:17 Medical History No medical history recorded. Gynecological HistoryNo gynecological history recorded. Obstetrics History GPAL:G 0 P 0 0 0 0 Past Encounters Encounter ID Performer Location Encounter Start Date Encounter Closed Date Diagnosis/Indication Diagnosis SNOMED-CT Code Diagnosis ICD10 Code Diagnosis [place] [id number] [place] [address] [address] 11/27/2022 09:07:46 11/27/2022 11:00:30 Exposure to SARS-CoV-2 693268618 Z20.822 Acute sinusitis 87063686 J01.90 Health Concerns Section Related Observation LastModified by Organization Detai ls LastModified Time None Recorded Concern Status LastModified by Organization Details LastModified Time None Recorded Advance Directives Directive None Recorded Payers Encounter Date Sequence Insurance Name Policy Number Policy Yee Covered Member ID Yee Member ID Guarantor Name 11/27/2022 1 [facility]: MEDICARE HMO BLUE (MEDICARE REPLACEMENT HMO) [id number] Brittanie Baltazar [id number] Brittanie Baltazar Notes Date Note Type Note Provider Name and Address Organization Details Recorded Time 11/27/2022 text/html CongestionReport ed bypatient.Notes:nasal congestion with post nasal drip x 3 days. denies nay fever or fever with chills. no SOB or respiratory distress. Aquilino Guadarrama NP [address] [place], [address], [place] - [facility] 11/27/2022 19:52:20 OBGyn Episode No OBEpisode recorded.
== END 2025-02-05 16:31 | disposition home or self-care (01) ==
PROVIDERS: Emergency Provider Emergency Medicine; PCP Family Medicine
DX: S09.90XA Unspecified injury of head, initial encounter (principal); S00.83XA Contusion of other part of head, initial encounter; I48.91 Unspecified atrial fibrillation; M54.2 Cervicalgia; R51.9 Headache, unspecified; I10 Essential (primary) hypertension; W18.30XA Fall on same level, unspecified, initial encounter; Y93.9 Activity, unspecified; Y92.9 Unspecified place or not applicable; Y99.8 Other external cause status; Z79.899 Other long term (current) drug therapy; Z79.01 Long term (current) use of anticoagulants
CPT/HCPCS: 70450; 70486; 72125; 99283; 99284

== ENCOUNTER → 2025-02-05 13:06 | Outpatient (BNV) | payer MEDICARE, SELFPAY | PROVIDERS: PCP Family Medicine; Visit Provider Radiology Diagnostic Radiology | DX: M47.812 Spondylosis without myelopathy or radiculopathy, cervical region (principal); I70.90 Unspecified atherosclerosis; R22.0 Localized swelling, mass and lump, head | CPT/HCPCS: 70450; 70486; 72125 ==

== ENCOUNTER 2025-03-08 13:09 | Outpatient (AMB) | payer MEDICARE, SELFPAY ==
--- NOTE | 2025-03-08 13:39 | A.OFFVIS_ITS ---
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 Today she reports she has been feeling well since her last visit in May. She does not notice heart palpitations. No chest discomfort at rest or with activity. No shortness of breath, PND, orthopnea or edema. No lightheadedness, presyncope, syncope, falls. Reports good activity tolerance. Lives alone has to manage her home and ADLs independently. She describes having 2 falls in the last 6 months: one- she slipped on ice and another - she bent over and fell forward. No significant injuries. Takes all meds as directed. No bleeding issues reported. [facility] Medical History Essential hypertension Atrial fibrillation Surgical History No pertinent past surgical history Family History Mother Heart problem Brother Heart problem Social History Patient Tobacco Use Status: Never used Tobacco Review of Systems Const All systems reviewed & are unremarkable except as noted in HPI and below ENT Denies dizziness Card Denies chest pain, Denies chest pain at rest, Denies chest pain with activity, Denies rapid heart rate, Denies pedal edema, Denies edema, Denies leg edema, Denies lightheadedness, Denies palpitations, Denies dyspnea, Denies dyspnea on exertion and Denies orthopnea Resp Denies cough, Denies dyspnea and Denies dyspnea on exertion GI Denies hematochezia and Denies change in stool character Musc Details: arthritis pain Reports abnormal gait, Reports limited range of motion, Reports muscle cramps, Denies muscle weakness, Denies numbness, Denies radiating pain into limb, Denies stiffness and Denies tingling Neuro Reports abnormal gait, Denies dizziness, Denies numbness and Denies tingling Endo Denies palpitations Physical Exam Vital Signs: Last Vital Signs Pulse 71 03/08/25 13:41 BP 142/80 H 03/08/25 13:41 BMI result Body Mass Index 22.2 Const General: cooperative, healthy appearing, comfortable and no acute distress Orientation/consciousness: patient oriented x3 Neck Neck: Yes normal visual inspection and Yes no JVD Resp Effort & Inspection: normal respiratory effort Auscultation: clear to auscultation bilaterally, no rales, no rhonchi and no wheezes Cardio Jugular venous distension: no JVD Rate: regular rate Rhythm: abnormal rhythm Heart sounds: S1 normal heart sound present, S2 normal heart sound present, no murmurs and no rubs Neuro General: patient oriented x3 Extrem General: Yes normal to inspection and No no pedal edema Psych Appearance: grossly normal Mental Status: mental status grossly normal Speech and movement: Normal speech and movement present Office Procedures EKG Details: Today, read by me atrial flutter with variable AV block, left axis, cant exclude prior anterior infarct, rate 71, Qtc 447ms [id number], Complete Assessment & Plan Assessment & Plan (1) Atrial fibrillation: Code(s): I48.91 - Unspecified atrial fibrillation Category: Medical Plan: History of chronic atrial fibrillation, asymptomatic. Echocardiogram was done 01/04/2024 showing EF greater than 70%, moderate mitral annular calcification, mild mitral regurgitation, left atrium severely dilated. Holter monitor done 01/04/2024 for 3 days shows atrial fibrillation with average heart rate 84, 7% of the time greater than 100. EKG today shows atrial flutter with variable AV block, rate 71. Continue metoprolol XL 150 mg daily. Continue Eliquis 2.5 mg b.i.d. for anticoagulation. That dose is appropriate for her age and weight. No medication changes made. Cardiology follow-up 6 months, sooner if needed. (2) Essential hypertension: Code(s): I10 - Essential (primary) hypertension Category: Medical Plan: Blood pressure goal less than 130/80. Mildly elevated today. Reviewed low-salt diet, medication compliance. Continue metoprolol and lisinopril. She follows with her PCP routinely. If her blood pressure remains elevated on follow-up, then lisinopril can be increased or amlodipine added. (3) Mitral annular calcification: Code(s): I34.81 - Nonrheumatic mitral (valve) annulus calcification Category: Medical Plan: As above Plan Time spent on chart review, documentation, interview and assessment Patient was informed and verbally consented to the use of an ambient scribe for clinic note documentation during this visit. During the visit, I reviewed the khoury points regarding the management of atrial fibrillation, with a primary focus on stroke prevention through anticoagulation with Eliquis. We discussed her effective use of Metoprolol in maintaining cardiovascular stability, addressing her controlled heart rate which was reported at 71 bpm. Emphasis was placed on medication adherence and being vigilant about avoiding falls due to heightened bleeding risks from Eliquis. The importance of limiting salt intake for blood pressure control was recommended, alongside advice to maintain current pharmacotherapy. A six-month follow-up is advised, barring any acute symptoms like chest pain, bleeding, or severe palpitations. Patient Instructions: - Continue taking Eliquis and Metoprolol as prescribed. - Avoid falls; be cautious with movements to prevent injury. - Monitor for and report any signs of bleeding, such as blood in urine or stool. - Maintain a low-salt diet to aid blood pressure control. - Alert any new symptoms such as chest pain or shortness of breath. - Schedule a follow-up in six months unless new symptoms arise. Coding Level of Care Code Est Pt Level 4 (77169) Complex EM visit Add On G2211 Diagnoses Atrial fibrillation I48.91 Essential hypertension I10 Mitral annular calcification I34.81 CPT Codes EKG - CPT: 38984-Pqyjvtxivynksgruh, Complete ([id number]) Time Spent (min) 28
[2025-03-08 13:41] VITALS: BP 142/80; PULSE 71; BMI 22.2
--- OUTSIDE RECORDS SUMMARY | 2025-03-08 15:34 | XMS_ITS | Data Portability ---
Author Organization MARIALUISA Meyers [employer], [address] Address [address] [place] [address] Assessment No assessment recorded. Plan of Treatment Reminders Order Date Submit Date Provider Last Modified By Organization Details Last Modified Time Details Appointments None recorded. Lab rapid SARS CoV 2 Ag, QL IA, respiratory specimen 2022 023 shamar _johanne [facility], [address] [place] [address], [phone], 3 10:56:14 rapid flu (A+B) 2022 023 zack _johanne [facility], [address] [place] [address], [phone], 3 10:56:14 Referral None recorded. Procedures None recorded. Surgeries None recorded. Imaging None recorded. Medication Orders prednisone 20 mg tablet 2022 023 [id number], [address] [place], [address], 3 10:56:16 Allergy Relief (fluticason e) 50 mcg/actuati on nasal spray,suspe nsion 2022 023 [id number], [address] [place], [address], 3 10:56:16 Patient TargetsNo targets recorded. Patient Instructions Encounter Date Encounter Id Patient Instructions Last Modified By Organization Details Last Modified Time 11/27/2022 [id number] Acute Sinusitis: Care Instructions shamar Not available [...] care for yourself at home? Take an sayp-ogg-ppzquro pain medicine. Avoid Ibuprofen, Aleve and Aspirin if . If the doctor prescribed antibiotics, take them as directed. Do not stop taking them just because you feel better. You need to take the full course of antibiotics. Be careful when taking npbx-eaw-ixggyqh cold or influenza (flu) medicines and Tylenol [...] =Negat gricelda Not Available [facility] [address] [place] [address], [phone], 11/27/2022 10:09:58 11/27/19 23 11/27/2022 rapid SARS CoV 2 Ag, QL IA, respi rator y speci men Unknown Analyte negati ve Not Available [facility] [place], [address], 11/27/2022 10:09:58 11/27/19 23 11/27/2022 rapid flu (A+B) Unknown Analyte Normal = Negati ve Not Available [address]ia lomas [address], [place], [address], 11/27/2022 10:09:51 11/27/19 23 11/27/2022 rapid flu (A+B) Unknown Analyte Normal = Negati ve Not Available [address] [place], [place] [address]alessandra lomas [address], [address], 11/27/2022 10:09:51 11/27/19 23 11/27/2022 rapid flu (A+B) Unknown Analyte negati ve Not Available [address] [place] [address], [phone], 11/27/2022 10:09:51 11/27/19 23 11/27/2022 rapid flu (A+B) Unknown Analyte negati ve Not Available [address] [place] [address], [place], [address], 11/27/2022 10:09:51 Result Notes None recorded. Problems Name Problem SNOMED Code Status Onset Date Resolution Date Notes Provider Name and Address Organization Details Recorded Time Arthritis 3042184 Active 2022 IRIS COUVERTIE R null, [place] - [facility] 3 10:09:11 Essential hypertension 08441918 Active 2022 IRIS COUVERTIE R null, [place] - [facility] 3 10:09:14 Insomnia 410841134 Active 2022 IRIS COUVERTIE R null, PA [...] Name and Address Organization Details Recorded Time 146117 Product containin g penicilli n (product) medicatio n rash moderate low 11/27/2022 73276 8001 SNOMED JANEEN ALEXAUREA campbell, [place] - [facility] 3 10:06:55 902232 hydrochlo rothiazid e medicatio n Not available [...] Updated DateTime 3 154.94 cm 23.1 kg/m2 15805.2 7 g 97.8 [degF] 18 /min 60 [...] SNOMED-CT Code Diagnosis ICD10 Code Diagnosis Note [id number] [address] [address] 11/27/2022 09:07:46 11/27/2022 11:00:30 Exposure to SARS-CoV-2 205283602 Z20.822 Acute sinusitis 92702020 J01.90 Health Concerns Section Related Observation LastModified by Organization Detai ls LastModified Time None Recorded Concern Status LastModified by Organization Details LastModified Time None Recorded Advance Directives Directive None Recorded Payers Encounter Date Sequence Insurance Name Policy Number Policy Yee Covered Member ID Yee Member ID Guarantor Name 11/27/2022 1 [facility]: MEDICARE HMO BLUE (MEDICARE REPLACEMENT HMO) [id number] Brittanie Baltazar [id number] Brittanie Baltazar Notes Date Note Type Note Provider Name and Address Organization Details Recorded Time 11/27/2022 text/html CongestionReport ed bypatient.Notes:nasal congestion with post nasal drip x 3 days. denies nay fever or fever with chills. no SOB or respiratory distress. Aquilino Guadarrama NP [address] [place], [address], [place] - [facility] 11/27/2022 19:52:20 OBGyn Episode No OBEpisode recorded.
--- OUTSIDE RECORDS SUMMARY | 2025-03-08 15:34 | XMS_ITS | Continuity of Care Document ---
Author Organization [facility] Jimmie Azael lt Address [address] [place] [address]- Care Team Providers Care Telecommunications Technician Name Role Phone Brandon BERGER, Heron Espinoza Primary Care Physician Encounter [facility] Date(s): 02/05/25 - 03/07/25 [facility] [place], [facility] [address] [place] [address]- Encounter Type: Triage Allergies, Adverse Reactions, Alerts Substance Criticality Severity Reaction Reaction Severity Status penicillin 1 Rash Active hydroCHLOROthiazide hyponatremia Active 1tolerates cefazolin Immunizations Given and Recorded Vaccine Date Status Refusal Reason zoster vaccine, inactivated 04/30/24 Recorded zoster vaccine, inactivated 02/03/24 Recorded pneumococcal 20-valent conjugate vaccine 02/03/24 Recorded SARS-CoV-2(COVID-19)mRNA-LNP vac([id number]) 02/03/24 Recorded influenza virus vaccine, inactivated 08/25/22 Maik rded influenza virus vaccine, inactivated 08/01/21 Maik rded influenza virus vaccine, inactivated 1 07/11/20 Re corded influenza virus vaccine, inactivated 2 10/02/19 Gi tito influenza virus vaccine, inactivated 3 08/31/18 Re corded influenza virus vaccine, inactivated 08/26/18 Maik rded influenza virus vaccine, inactivated 07/30/17 Maik rded influenza virus vaccine, inactivated 4 08/10/16 Re corded influenza virus vaccine, inactivated 5 08/24/15 Re corded influenza virus vaccine, inactivated 6 09/01/13 Gi tito influenza virus vaccine, inactivated 08/30/13 Maik rded influenza virus vaccine, inactivated 7 08/22/10 Gi tito influenza virus vaccine, inactivated 08/21/10 Maik rded [id number] 12y+ bivalent booster vax 08/25/22 Recorded SARS-CoV-2 mRNA (szjsusg-egdo-mlium) vax 03/28/22 Recorded SARS-CoV-2 (COVID-19) mRNA BNT-162b2 vac 08/15/21 Recorded SARS-CoV-2 (COVID-19) mRNA BNT-162b2 vac 07/18/21 Recorded SARS-CoV-2 (COVID-19) mRNA BNT-162b2 vac 01/08/21 Recorded SARS-CoV-2 (COVID-19) mRNA BNT-162b2 vac 12/18/20 Recorded pneumococcal 23-valent vaccine 11/04/19 Recorded Zoster Vaccine Live 07/24/17 Recorded Zoster Vaccine Live 8 09/01/13 Given Zoster Vaccine Live 08/30/13 Recorded pneumococcal 13-valent vaccine 11/11/15 Given tetanus-diphtheria toxoids (Td) 01/29/10 Given Influenza Virus Vaccine (oldterm) 08/01/09 Given Influenza Virus Vaccine (oldterm) 09/08/05 Given Influenza Inactive (IM) (oldterm) 09/25/08 Given Pneumococcal Vaccine (oldterm) 09/08/03 Given Tetanus Toxoid Vaccine (oldterm) 11/08/98 Given 1Result Comment: [facility] 2Result Comment: [id number] 3[facility]21/2018[facility] 4[facility] Comment: [08/12/2016] ashley 5Result Comment: [08/26/2015] FLUZONE HIGH DOSE 6Admin Note: given at [facility] 7Admin Note: [facility] 8Admin Note: given at [facility] Medications ALPRAZolam 0.5 mg oral tablet See Instructions, TAKE 1 TO 2 TABLETS BY MOUTH DAILY AT BEDTIME NEEDED, # 60 tablet, Refills 5, Tot. Refills 5, Maintenance, 02/20/25 5:48:00 PM EDT, Instructions Replace Required Details, Route toPharmacy Electronically, [facility] #[id number], 150, cm, 02/19/25 13:06:00 EDT, Height Start Date: 02/20/25 Stop Date: 07/23/25 Status: Ordered Quantity: 60.0 Unit: tablet Repeat number: 6 ALPRAZolam 0.5 mg oral tablet 1-2 TABLETS, By Mouth, Daily at bedtime, PRN, # 60 tablet, Refills 2, Tot. Refills 2, Maintenance, NEEDED, 09/20/24 6:22:00 AM EST, Route to Pharmacy Electronically, [facility]/pharmacy #[id number], 150, cm, 09/04/24 14:12:00 EDT, Height Start Date: 09/20/24 Stop Date: 11/20/24 Status: Ordered Quantity: 60.0 Unit: tablet Repeat number: 3 apixaban 2.5 mg oral tablet 1 tablet = 2.5 mg, By Mouth, 2 times a day, # 60 tablet, 0 Refills, Maintenance, 09/04/24 2:30:00 PM EDT, Partial fill upon patient request if the prescription is for a schedule II opioid drug. Start Date: 09/04/24 Status: Ordered Quantity: 60.0 Unit: tablet Repeat number: 1 B-Plex Plus Vitamin B Complex oral tablet 1 tablet, By Mouth, Daily, 0 Refills, Maintenance, 03/24/16 2:50:24 PM EDT Start Date: 03/24/16 Status: Ordered Repeat number: 1 Calcium Carbonate 1 tablet, By Mouth, Daily, 0 Refills, Maintenance, 04/21/16 11:04:15 AM EDT Start Date: 04/21/16 Status: Ordered Repeat number: 1 citalopram 40 mg oral tablet 40 mg, 1, tablet, By Mouth, Daily, increase in dose, # 90 tablet, Refills 3, Tot. Refills 3, Maintenance, 03/01/25 12:06:00 PM EDT, Route to Pharmacy Electronically, [facility]/pharmacy #[id number], Partial fill upon patient request if the prescription is for a schedule II opioid drug., 150, cm, 02/19/25 13:06:00 EDT, Height Start Date: 03/01/25 Status: Ordered Quantity: 90.0 Unit: tablet Repeat number: 4 lisinopril 40 mg oral tablet 1 tablet = 40 mg, By Mouth, Daily, Replaces 30 mg dose, # 90 tablet, 3 Refills, Maintenance, 09/04/24 2:37:00 PM EDT, Tablet, [facility]/pharmacy #[id number], Partial fill upon patient request if the prescriptionis for a schedule II opioid drug., 150, cm, 09/04/24 14:12:00 EDT, Height Start Date: 09/04/24 Status: Ordered Quantity: 90.0 Unit: tablet Repeat number: 4 metoprolol succinate 50 mg oral capsule, extended release 3 capsule = 150 mg, By Mouth, Daily, # 90 capsule, 0 Refills, Maintenance, 09/04/24 2:31:00 PM EDT,ER Capsule, Partial fill upon patient request if the prescription is for a schedule II opioid drug. Start Date: 09/04/24 Status: Ordered Quantity: 90.0 Unit: capsule Repeat number: 1 Multivitamin 1 tablet, By Mouth, Daily, 0 Refills, Maintenance, 03/24/16 2:49:16 PM EDT Start Date: 03/24/16 Status: Ordered Repeat number: 1 sulfaSALAzine 500 mg oral delayed release tablet 2 tablet, By Mouth, 2 times a day, # 120 tablet, 5 Refills, 03/08/23 4:38:00 PM EDT, [facility]/pharmacy #[id number], 151.2, cm, 12/25/22 14:03:00 EST, Height Start Date: 03/08/23 Status: Ordered Quantity: 120.0 Unit: tablet Repeat number: 6 Problem List Condition Confirmation Course Effective Dates Status Health Status Informant Hyperlipidemia Confirmed Active Hypertension Confirmed Active Hypertriglyceridemia 1 Confirmed Active Insomnia Confirmed Active Pruritus Confirmed Active Depression, major Confirmed Active Mitral regurgitation 2 Confirmed Active Osteoporosis - tx 1999 with fosamax, managed by rheumatology Confirmed Active assisted prescription benzodiazepine use Confirmed Active Rheumatoid arthritis 3 Confirmed Active 1mild 2mild to moderate by ECHO 05/12 3[place] Social History Social History Type Response Smoking Status Former smoker; Start ed at age: 15; Stopped at age: 50; entered on: 03/23/16 Sex Female Sex Representation Female (finding) Patient Care team information Care Team Personnel Name: Heron Taylor MD Position: S Physician - Primary Care Member Role: PCP Address: [address] [place] [address]- Telecom: Care Team Related Persons Name: EVERARDO MENDENHALL Insurance Providers Guarantor name: [facility] Information #: 1 [facility] Member Number: NA Policy Number: NA Group Number: NA
== END 2025-03-08 14:12 | disposition home or self-care (01) ==
LOC: HO.HCS 13:10
PROVIDERS: PCP Family Medicine; Visit Provider Nurse Practitioner Family
DX: I48.91 Unspecified atrial fibrillation (principal); I10 Essential (primary) hypertension; I34.81 Nonrheumatic mitral (valve) annulus calcification
CPT/HCPCS: 99214; G2211

== ENCOUNTER → 2025-03-08 13:09 | Outpatient (BNVA) | payer MEDICARE, SELFPAY | PROVIDERS: PCP Family Medicine; Visit Provider Nurse Practitioner Family | DX: I48.91 Unspecified atrial fibrillation (principal); I10 Essential (primary) hypertension; I34.81 Nonrheumatic mitral (valve) annulus calcification | CPT/HCPCS: 93005; 99212 ==

== ENCOUNTER 2025-03-11 14:09 | Emergency (ER) | payer MEDICARE, SELFPAY ==
--- NOTE | ~2025-03-11 | CT_ITS ---
CLINICAL HISTORY: fall, +head strike on Eliquis CT head without contrast Comparison: CT/ND/SR - CT HEAD/BRAIN WO IV CON - 02/05/25 13:44 EDT Findings: No intra-axial mass, midline shift, hydrocephalus, or acute hemorrhage. There is moderate cortical atrophy. There is no sinus or mastoid fluid. The orbits are within normal limits. No skull fracture. Microvascular changes are noted. IMPRESSION: 1. No acute intracranial findings. This document has been electronically signed by: David Benjamin MD on 03/11/2025 16:31:40
--- NOTE | ~2025-03-11 | CT_ITS ---
CLINICAL HISTORY: fall, on AC CT cervical spine without contrast Comparison: None Findings: There is multilevel facet arthropathy with mild spondylolisthesis at the C4-5 level. There is severe degenerative disc disease at C5-6 level with disc space narrowing and endplate reactive changes. There is significant right-sided neural foraminal narrowing at this level. No acute fractures or dislocations. No acute findings on limited view of the intracranial contents. Soft tissues of the neck are normal. Lung apices are clear. IMPRESSION: No acute findings. Degenerative changes as above. This document has been electronically signed by: David Benjamin MD on 03/11/2025 16:29:30
[2025-03-11 14:39] VITALS: BP 181/73; PULSE 77; RESP 20; TEMP 37; O2SAT 97; BMI 22.2
--- NOTE | 2025-03-11 14:41 | ED_ITS ---
HPI - Fall General Chief Complaint: Fall Stated Complaint: fall t-2 Time Seen by Provider: 03/11/25 17:12 Source: patient Mode of arrival: ambulatory Limitations: no limitations History of Present Illness ED Provider: Dasha Boo APRN HPI Narrative: 84-year-old female with a history of AFib on Eliquis, hypertension, depression presents to the ER with complaints of mechanical fall which occurred 2 days ago with a posterior head strike. No LOC. landed on buttocks. Here complaining of mild headache and lower buttocks pain. Patient denies chest pain, abdominal pain, cervical pain, vision changes, vomiting. Related Data Home Medications ?Medication ?Instructions ?Recorded ?Confirmed citalopram 20 mg tablet 20 mg PO DAILY 12/01/23 03/08/25 lisinopril 30 mg tablet 30 mg PO DAILY 12/01/23 03/08/25 sulfasalazine 500 mg 1,000 mg PO BID 12/01/23 03/08/25 tablet,delayed release alprazolam 0.5 mg tablet 0.5 mg PO 12/06/23 03/08/25 Previous Rx's ?Medication ?Instructions ?Recorded apixaban 2.5 mg tablet (Eliquis) 2.5 mg PO BID 30 days #60 tabs 12/11/24 metoprolol succinate 50 mg 150 mg (3 x 50 mg) PO DAILY #270 02/16/25 tablet,extended release 24 hr tabs lidocaine 5 % topical patch 1 patch topical DAILY #15 ea 03/11/25 (Lidoderm) Allergies Allergy/AdvReac Type Severity Reaction Status Date / Time Penicillins [PCN] Allergy Mild RASH Verified 03/11/25 14:41 hydrochlorothiazide Allergy Unknown RASH Verified 03/11/25 14:41 [HYDROCHLOROTHIAZIDE] Review of Systems Review of Systems: Yes all other systems are reviewed and are negative Constitutional: Constitutional: Reports no additional constitutional complaints, Denies body ache(s), Denies chills, Denies fever(s), Reports headache(s) and Denies weakness Eyes: Eyes: Reports no additional eye complaints and Denies change in vision ENT: Reports system reviewed and no additional complaints, except as documented, Denies dizziness, Reports headache(s), Denies nasal congestion, Denies nasal discharge and Denies neck pain Cardiovascular: Cardiovascular: Reports no additional cardiovascular complaints, Denies chest pain, Denies leg edema and Denies dyspnea Respiratory: Respiratory: Reports no additional respiratory complaints, Denies cough and Denies dyspnea Gastrointestinal: Gastrointestinal: Reports no additional gastrointestinal complaints, Denies abdominal pain, Denies diarrhea, Denies nausea and Denies vomiting Genitourinary: Genitourinary: Reports no additional female genitourinary complaints and Denies urinary incontinence Musculoskeletal: Musculoskeletal: Reports no additional musculoskeletal complaints, Reports back pain, Denies arthralgias, Denies joint swelling, Denies neck pain, Denies numbness and Denies tingling Integumentary/Breasts: Skin/Breast: Reports system reviewed and no additional complaints, except as docu and Denies rash Neurologic: Reports system reviewed and no additional complaints, except as documented, Denies Abnormal speech present, Denies dizziness, Reports headache(s), Denies numbness, Denies tingling and Denies weakness PMFSH Past Medical History Attestation statement: The following information was validated with the patient. Source: old records reviewed and nursing notes reviewed Medical History Essential hypertension Atrial fibrillation Surgical History No pertinent past surgical history Family History Family History Mother Heart problem Brother Heart problem Social History Social History Patient Tobacco Use Status: Never used Tobacco Advance Directives: No Advance Directives Information Provided: Yes Physical Exam Vital Signs: Vital Signs: Last Vital Signs Temp 98.2 F 03/11/25 17:52 Pulse 86 03/11/25 17:52 Resp 14 03/11/25 17:52 BP 101/59 L 03/11/25 17:52 Pulse Ox 96 03/11/25 17:52 O2 Del Method Room Air 03/11/25 17:52 BMI result Body Mass Index 22.2 Const: General: cooperative, healthy appearing, comfortable and no acute distress Orientation/consciousness: patient oriented x3 Limitations: no limitations HEENT: Head: Yes normal to inspection, No Griffin's sign and No raccoon eyes Ears: hearing grossly normal bilaterally and TM's normal bilaterally General nose exam: Normal external nose present Face and sinus: Yes normal facial exam Mouth: Normal oral and palatal mucosa present Throat: Yes posterior oropharynx normal Eyes: General: appearance normal, both eyes and all related structures P upils: Equal, round and reactive pupils present Neck: Other: No cervical midline tenderness, step-offs or deformities Neck: Yes normal visual inspection, Yes full ROM, Yes no lymphadenopathy and Yes no meningeal signs Chest: Chest palpation & inspection: normal inspection of the chest Resp: Effort & Inspection: normal respiratory effort Auscultation: clear to auscultation bilaterally Cardio: Rate: regular rate Rhythm: regular rhythm Peripheral pulses: Peripheral pulses 2+ throughout GI: Inspection: Yes normal to inspection Palpation (GI): Soft to palpation and nontender Auscultation: normal bowel sounds : General: Yes no CVA tenderness Back/Spine/Pelvis: Back: no CVA tenderness Thoracic/Lumbar Spine: thoracic and lumbar spine normal to inspection Skin: General skin exam: no rashes or lesions noted Neuro: General: patient oriented x3, moves all extremities, no meningeal s igns, no focal motor deficits and normal sensation to monofilament Cranial nerves: Yes CN's II-XII intact bilaterally, Yes Equal, round and reactive pupils present, Yes Bilaterally intact EOM present, Yes Nystagmus not present, Yes Normal facial strength present and Yes Midline tongue present Cognition (Neuro): normal cognition Speech: No Abnormal speech present Gait exam (Neuro): Normal gait present Motor exam (neuro): 5/5 motor strength present throughout Sensory Exam: Normal double simultaneous stimulation for sensation Extrem: General: Yes normal to inspection Course Course Course Narrative: This is an RME: Additional HPI, ROS, PE not included below will be deferred to primary provider. RME assessment and note performed by: Marine Moeller PA-C This is a 84-year-old female, with a past medical history of atrial fibrillation on Eliquis, who presents emergency department with concerns for head injury after mechanical fall. Asymptomatic. No open wounds, neuros intact. No c spine tenderness. Plan: CT head/neck Reevaluation(s) Reevaluation #1: CT head and cervical spine show no acute fracture or bleeding. Reviewed findings with patient. Reviewed worrisome signs and symptoms of when to return to the emergency room. Comfortable plan for discharge home. Medical Decision Making Medical Decision Making [facility] Narrative: 84-year-old female with a history of AFib on Eliquis, hypertension, depression presents to the ER with complaints of mechanical fall which occurred 2 days ago with a posterior head strike. No LOC. landed on buttocks. Here complaining of mild headache and lower buttocks pain. Patient denies chest pain, abdominal pain, cervical pain, vision changes, vomiting. Normal neuro exam no focal deficits. No cervical midline tenderness, step-offs or deformities with full range of motion There is no palpable tenderness over the lower back. There is no midline lumbar tenderness, step-offs or deformities. There is no CVA tenderness. Will obtain CT head, CT cervical spine Differential Diagnosis Differential Diagnoses: The differential diagnosis associated with the presentation includes Contusion, cervical strain, cervical sprain Fracture, basilar skull fracture, ICH Admission/Observation Consideration of admission/observation: Escalation of care including admission/observation considered Independent Interpretation I performed an independent interpretation of an: CT Scan Interpretation: I independently viewed the CT scan agree with the radiology report Radiology Impression Discussion of test interpretation with radiology: I have reviewed the radiologist's reading. Radiologist Impression: [address] [address] [address] Scan Report Signed Patient: Brittanie Baltazar MR#: [id number] : 1940 Acct:[id number] Age/Sex: 84 / F ADM Date: 03/11/25 Loc: HO.ED Attending Dr: Ordering Physician: Marine Rudd Date of Service: 03/11/25 Procedure(s): CT cervical spine wo IV con Accession Number(s): [id number] cc: Marine Rudd; Heron Taylor MD~ Report Number: [id number]: Total DLP = 220.00 mGy-cm CLINICAL HISTORY: fall, on AC CT cervical spine without contrast Comparison: None Findings: There is multilevel facet arthropathy with mild spondylolisthesis at the C4-5 level. There is severe degenerative disc disease at C5-6 level with disc space narrowing and endplate reactive changes. There is significant right-sided neural foraminal narrowing at this level. No acute fractures or dislocations. No acute findings on limited view of the intracranial contents. Soft tissues of the neck are normal. Lung apices are clear. IMPRESSION: No acute findings. Degenerative changes as above. This document has been electronically signed by: David Benjamin MD on 03/11/2025 16:29:[address] [address] [address] Scan Report Signed Patient: Brittanie Baltazar MR#: [id number] : 1940 Acct:[id number] Age/Sex: 84 / F ADM Date: 03/11/25 Loc: HO.ED Attending Dr: Ordering Physician: Marine Rudd Date of Service: 03/11/25 Procedure(s): CT head/brain wo IV con Accession Number(s): [id number] cc: Marine Rudd; Heron Taylor MD~ Report Number: [id number]: Total DLP = 657.00 mGy-cm CLINICAL HISTORY: fall, +head strike on Eliquis CT head without contrast Comparison: CT/IL/SR - CT HEAD/BRAIN WO IV CON - 02/05/25 13:44 EDT Findings: No intra-axial mass, midline shift, hydrocephalus, or acute hemorrhage. There is moderate cortical atrophy. There is no sinus or mastoid fluid. The orbits are within normal limits. No skull fracture. Microvascular changes are noted. IMPRESSION: 1. No acute intracranial findings. This document has been electronically signed by: David Benjamin MD on 03/11/2025 16:31:40 Discharge Plan Discharge Clinical Impression: Contusion of head, Lumbar contusion Patient Disposition: Home, Self-Care Instructions: Contusion in Adults (ED) Additional Instructions: Tylenol for pain Ice to the affected area Return for any additional concerns Follow-up with your doctor discuss your medication Prescriptions: New lidocaine [Lidoderm] 5 % adhesive patch,medicated 1 patch topical DAILY Qty: 15 0RF Rx Instructions: leave on most painful area for up to 12 hrs No Action Eliquis 2.5 mg tablet 2.5 mg PO BID 30 Days Qty: 60 5RF metoprolol succinate 50 mg tablet extended release 24 hr 150 mg PO DAILY Qty: 270 3RF sulfasalazine 500 mg tablet,delayed release (DR/EC) 1,000 mg PO BID lisinopril 30 mg tablet 30 mg PO DAILY citalopram 20 mg tablet 20 mg PO DAILY alprazolam 0.5 mg tablet 0.5 mg PO Referrals: Heron Taylor MD [Primary Care Provider] - 1 week Interventions: ED Discharge Assessment Last Done: 03/11/25 17:52 Discharge Date/Time: 03/11/25 17:52 Print Language: Yakut
--- OUTSIDE RECORDS SUMMARY | 2025-03-11 17:16 | XMS_ITS | Continuity of Care Document ---
Author Organization [facility] Jimmie Azael lt Address [address] [place] [address]- Care Team Providers Care Clinical Research Manager Name Role Phone Brandon BERGER, Heron Espinoza Primary Care Physician Encounter [facility] Date(s): 02/08/25 - 03/10/25 [facility] [place] Adult [address] [place] [address]- Encounter Type: Triage Allergies, Adverse Reactions, Alerts Substance Criticality Severity Reaction Reaction Severity Status penicillin 1 Rash Active hydroCHLOROthiazide hyponatremia Active 1tolerates cefazolin Immunizations Given and Recorded Vaccine Date Status Refusal Reason zoster vaccine, inactivated 04/30/24 Recorded zoster vaccine, inactivated 02/03/24 Recorded pneumococcal 20-valent conjugate vaccine 02/03/24 Recorded SARS-CoV-2(COVID-19)mRNA-LNP vac(oyf510) 02/03/24 Recorded influenza virus vaccine, inactivated 08/25/22 [...] influenza virus vaccine, inactivated 08/21/10 Maik rded [id number] 12y+ bivalent booster vax 08/25/22 Recorded SARS-CoV-2 mRNA (oygdxzb-irua-zqiec) vax 03/28/22 Recorded SARS-CoV-2 (COVID-19) mRNA BNT-162b2 [...] Toxoid Vaccine (oldterm) 11/08/98 Given 1Result Comment: [facility] 2Result Comment: [id number] 3[facility]21/2018[facility] 4[facility] Comment: [08/12/2016] ashley 5Result Comment: [08/26/2015] FLUZONE HIGH DOSE 6Admin Note: given at [facility] 7Admin Note: [facility] 8Admin Note: given at [facility] Medications ALPRAZolam 0.5 mg oral tablet See Instructions, TAKE 1 TO 2 TABLETS BY MOUTH DAILY AT BEDTIME NEEDED, # 60 tablet, Refills 5, Tot. Refills 5, Maintenance, 02/20/25 5:48:00 PM EDT, Instructions Replace Required Details, Route toPharmacy Electronically, [facility]/pharmacy #[id number], 150, cm, 02/19/25 13:06:00 EDT, Height Start Date: 02/20/25 Stop Date: 07/23/25 Status: Ordered Quantity: 60.0 Unit: tablet Repeat number: 6 ALPRAZolam 0.5 mg oral tablet 1-2 TABLETS, By Mouth, Daily at bedtime, PRN, # 60 tablet, Refills 2, Tot. Refills 2, Maintenance, NEEDED, 09/20/24 6:22:00 AM EST, Route to Pharmacy Electronically, [facility]/pharmacy #[id number], 150, cm, 09/04/24 14:12:00 EDT, [...] 12:06:00 PM EDT, Route to Pharmacy Electronically, [facility]/pharmacy #[id number], Partial fill upon patient request if the prescription is for a schedule II opioid drug., 150, cm, 02/19/25 13:06:00 EDT, Height Start Date: 03/01/25 Status: Ordered Quantity: 90.0 Unit: tablet Repeat number: 4 lisinopril 40 mg oral tablet 1 tablet = 40 mg, By Mouth, Daily, Replaces 30 mg dose, # 90 tablet, 3 Refills, Maintenance, 09/04/24 2:37:00 PM EDT, Tablet, [facility]/pharmacy #[id number], Partial fill upon patient request [...] tablet, 5 Refills, 03/08/23 4:38:00 PM EDT, [facility]/pharmacy #[id number], 151.2, cm, 12/25/22 14:03:00 EST, [...] with fosamax, managed by rheumatology Confirmed Active ferry terminal agent prescription benzodiazepine use Confirmed Active Rheumatoid arthritis 3 Confirmed Active 1mild 2mild to moderate by ECHO 05/12 3[place] Social History Social History Type Response Smoking Status Former smoker; Start ed at age: 15; Stopped at age: 50; entered on: 03/23/16 Sex Female Sex Representation Female (finding) Patient Care team information Care Team Personnel Name: Heron Taylor MD Position: [facility] Physician - Primary Care Member Role: PCP Address: [address] [place] [address]- Telecom: Care Team Related Persons Name: EVERARDO MENDENHALL Insurance Providers Guarantor name: [facility] Information #: 1 [facility] Member Number: NA Policy Number: NA Group Number: NA
--- OUTSIDE RECORDS SUMMARY | 2025-03-11 17:16 | XMS_ITS | Data Portability ---
Author Organization [facility], [facility] Address [address] [place] [address] Assessment No assessment recorded. Plan of Treatment Reminders Order Date Submit Date Provider Last Modified By Organization Details Last Modified Time Details Appointments None recorded. Lab rapid SARS CoV 2 Ag, QL IA, respiratory specimen 2022 023 shamar [facility], [address] [place] [address], [phone], 3 10:56:14 rapid flu (A+B) 2022 023 zack _[facility], [address] [place] [address], [phone], 3 10:56:14 Referral None recorded. Procedures None recorded. Surgeries None recorded. Imaging None recorded. Medication Orders prednisone 20 mg tablet 2022 023 [facility]/Pharmacy #[id number], [address] [place], [address], 3 10:56:16 Allergy Relief (fluticason e) 50 mcg/actuati on nasal spray,suspe nsion 2022 023 [facility]/Pharmacy #[id number], [address] [place], [address], 3 10:56:16 Patient TargetsNo targets recorded. Patient Instructions Encounter Date Encounter Id Patient Instructions Last Modified By Organization Details Last Modified Time 11/27/2022 [id number] Acute Sinusitis: Care Instructions shamar Not available [...] care for yourself at home? Take an kqke-rdb-xvjskrc pain medicine. Avoid Ibuprofen, Aleve and Aspirin if . If the doctor prescribed antibiotics, take them as directed. Do not stop taking them just because you feel better. You need to take the full course of antibiotics. Be careful when taking oajb-mci-concglg cold or influenza (flu) medicines and Tylenol [...] wear a mask. For travel guidance, see [facility]? s Travel webpage. Do not travel. Stay [...] masking (see below). For travel guidance, see [facility]? s Travel webpage. Not available 11/27/2022 10:54:01 Reason for Referral None Reported. Results Created Date Observation Date Name Description Value Unit Range Abnormal Flag Note LastModifiedBy Organization Detail LastModifiedTime 11/27/19 23 11/27/2022 rapid SARS CoV 2 Ag, QL IA, respi rator y speci men Unknown Analyte Normal =Negat gricelda Not Available [facility] [facility] [address] [place], [address], 11/27/2022 10:09:58 11/27/19 23 11/27/2022 rapid SARS CoV 2 Ag, QL IA, respi rator y speci men Unknown Analyte negati ve Not Available [facility] [facility] [place], [address], 11/27/2022 10:09:58 11/27/19 23 11/27/2022 rapid flu (A+B) Unknown Analyte Normal = Negati ve Not Available [address], [place], [address], 11/27/2022 10:09:51 11/27/19 23 11/27/2022 rapid flu (A+B) Unknown Analyte Normal = Negati ve Not Available [address] [place], [address], 11/27/2022 10:09:51 11/27/19 23 11/27/2022 rapid flu (A+B) Unknown Analyte negati ve Not Available [address], [place], [address], 11/27/2022 10:09:51 11/27/19 23 11/27/2022 rapid flu (A+B) Unknown Analyte negati ve Not Available [address] l[address], [place], [address], 11/27/2022 10:09:51 Result Notes None recorded. Problems Name Problem SNOMED Code Status Onset Date Resolution Date Notes Provider Name and Address Organization Details Recorded Time Arthritis 2540600 Active 2022 IRIS COUVERTIE R null, [place] - [facility] 3 10:09:11 Essential hypertension 03270489 Active 2022 IRIS COUVERTIE R null, [place] - [facility] 3 10:09:14 Insomnia 329223191 Active 2022 IRIS COUVERTIE R null, [place] - [facility] 3 10:09:06 Problem Notes None recorded. Procedures Surgical History Date Name Laterality Status Provider Name and Address Organization Details Recorded Time appendectomy completed IRIS COUVERTHENOK P A - [facility] 11/27/2022 10:09:43 Imaging Results None recorded. Procedure Notes None recorded. Medical Equipment None Reported. Allergies Allergen ID Allergen Name Allergen Category Reaction Reaction Severity Criticality Documentation Date Start Date Code Code System Note Provider Name and Address Organization Details Recorded Time 513300 Product containin g penicilli n (product) medicatio n rash moderate low 11/27/2022 43351 8001 SNOMED JANEEN JOHNSONVERTIE R null, [place] - [facility] 3 10:06:55 429029 hydrochlo rothiazid e medicatio n Not available Not available Not available 11/27/2022 5487 RxNorm IRIS ALEXVERTIE R null, [place] - [facility] 3 10:07:11 Medications [...] Updated DateTime 3 154.94 cm 23.1 kg/m2 39950.2 7 g 97.8 [degF] 18 /min 60 /min 99 % 99 % 148 mm[Hg] 69 mm[Hg] JANEEN WASHINGTON Alexis PA - [facility] 10:11:09 Social History Question Answer Notes LastModified by Organizat ion Details LastModified Time Tobacco Smoking Status Former Smoker JANEEN TIFFANIE MARIALUISA campbell - [facility] 11/27/2022 10:09:30 What Is [...] SNOMED-CT Code Diagnosis ICD10 Code Diagnosis Note [id number] [place] [address] [address] 11/27/2022 09:07:46 11/27/2022 11:00:30 Exposure to SARS-CoV-2 669365444 Z20.822 Acute sinusitis 20152830 J01.90 Health Concerns Section Related Observation LastModified by Organization Detai ls LastModified Time None Recorded Concern Status LastModified by Organization Details LastModified Time None Recorded Advance Directives Directive None Recorded Payers Encounter Date Sequence Insurance Name Policy Number Policy Yee Covered Member ID Yee Member ID Guarantor Name 11/27/2022 1 [facility]: MEDICARE HMO BLUE (MEDICARE REPLACEMENT HMO) [id number] Brittanie Baltazar [id number] Brittanie Baltazar Notes Date Note Type Note Provider Name and Address Organization Details Recorded Time 11/27/2022 text/html CongestionReport ed bypatient.Notes:nasal congestion with post nasal drip x 3 days. denies nay fever or fever with chills. no SOB or respiratory distress. Aquilino Guadarrama NP [address] [place], [address], [place] - [facility] 11/27/2022 19:52:20 OBGyn Episode No OBEpisode recorded.
[2025-03-11 17:39] VITALS: BP 101/59; PULSE 86; RESP 14; TEMP 36.8; O2SAT 96
[2025-03-11 17:52] VITALS: BP 101/59; PULSE 86; RESP 14; TEMP 36.8; O2SAT 96
== END 2025-03-11 17:52 | disposition home or self-care (01) ==
PROVIDERS: Emergency Provider Emergency Medicine; PCP Family Medicine
DX: S00.93XA Contusion of unspecified part of head, initial encounter (principal); S30.0XXA Contusion of lower back and pelvis, initial encounter; M54.2 Cervicalgia; R51.9 Headache, unspecified; W18.30XA Fall on same level, unspecified, initial encounter; Y93.9 Activity, unspecified; Y92.9 Unspecified place or not applicable; Y99.8 Other external cause status
CPT/HCPCS: 70450; 72125; 99283; 99284

== ENCOUNTER → 2025-03-11 14:41 | Outpatient (BNV) | payer MEDICARE, SELFPAY | PROVIDERS: PCP Family Medicine; Visit Provider Radiology Diagnostic Radiology | DX: M50.30 Other cervical disc degeneration, unspecified cervical region (principal); S09.90XA Unspecified injury of head, initial encounter; W19.XXXA Unspecified fall, initial encounter | CPT/HCPCS: 70450; 72125 ==

== ENCOUNTER 2025-09-25 11:56 | Outpatient (AMB) | payer MEDICARE, SELFPAY ==
--- NOTE | 2025-09-25 12:02 | MHC.OFFVIS ---
Intake Visit Reasons: [employer]:Worsening Bilateral Leg weakness, Hand Tremor Allergies Penicillins (PCN) Allergy (Mild, Verified 03/11/25 14:41) RASH hydrochlorothiazide (HYDROCHLOROTHIAZIDE) Allergy (Unknown, Verified 03/11/25 14:41) RASH HPI Comments Details: The patient is an 85-year-old female presenting for review of her recent MRI results. She reports a history of falling all the time since December, which she attributes to awful balance. Her walking has progressively worsened, and she describes her gait as very fast. The patient states her primary care physician, Dr. Gio Gustafson, ordered the MRI because he could not determine the cause of her symptoms. Associated symptoms include generalized weakness, fatigue, urinary urgency, anxiety, depression, and hearing loss. She reports her memory is great, though memory problems were noted in the summary. She sustained a concussion from her first fall. [facility], has no children, and states her family and friends are all gone. She has two stepchildren who live far away. She denies any current alcohol use, stating she no longer likes the taste. The patient owns hearing aids but reports she does not wear them due to discomfort. [facility] Medical History Essential hypertension Atrial fibrillation Surgical History No pertinent past surgical history Family History Mother Heart problem Brother Heart problem Social History Patient Tobacco Use Status: Never used Tobacco Review of Systems Narrative Constitutional:? Complain of fatigue and high blood pressure HEENT:? Has hearing loss Cardiovascular:? Suspicion of irregular heart rate Respiratory:?No cough, shortness of breath, wheezing, or hemoptysis. Gastrointestinal:?No nausea, vomiting, abdominal pain, diarrhea, or constipation. Genitourinary:? Urinary urgency Musculoskeletal:? Arthritis type of pain Neurological:? Difficulty walking, problem with memory and generalized weakness Psychiatric:? Anxiety and depression Endocrine:?No heat/cold intolerance, polydipsia, polyuria, or hair/skin changes. Hematologic/Lymphatic:?No easy bruising, bleeding, or lymphadenopathy. Integumentary (Skin):?No rash, lesions, itching, or color changes. Allergic/Immunologic:?No seasonal allergies, hives, or recurrent infections. Physical Exam Neuro Other: Mental Status: She is alert and awake with normal spontaneity of speech fluency comprehension and affect. She has following commands. No obvious confusion. She is able to provide her history. Cranial Nerves: CN II: Visual wilcox full to confrontation, visual acuity intact. CN III, IV, : Pupils equal, round, reactive to light and accommodation. Extraocular movements are normal. CN V: Facial sensation is normal. CN VII: Facial movements symmetrical. CN VIII: Hearing intact to bedside conversation is diminished CN IX, X: Palate elevates symmetrically. CN XI: Shoulder shrug and head turn symmetrical. CN XII: Tongue midline without atrophy or fasciculations. Motor: Deep tendon reflexes are 1+ in upper extremities, 1 to 2+ in knees and absent in ankles with flexor plantars. Coordination Wudfzm-lz-ewgh showed mild bilateral ataxia. Gait and Station: Slow and cautious gait. Sensory: Vibratory sensation is present in toes. Extrapyramidal: Full facial expressions and blinking. No rigidity. Movements are appropriate with no tremor or abnormality. Speech: Normal; no dysarthria or tremor. Assessment & Plan Assessment & Plan (1) Multifactorial gait disorder: Comment: CT brain WO at [facility] [place] 20[place]: Mod cerebellar, mild to mod cerebral atrophy, and mod MVD Code(s): R26.89 - Other abnormalities of gait and mobility Category: Medical (2) Cerebellar atrophy: Code(s): G31.9 - Degenerative disease of nervous system, unspecified Category: Medical (3) Cerebral microvascular disease: Code(s): I67.89 - Other cerebrovascular disease Category: Medical (4) Peripheral neuropathy: Code(s): G62.9 - Polyneuropathy, unspecified Category: Medical Qualifiers: Peripheral neuropathy type: polyneuropathy, unspecified Qualified Code(s): G62.9 - Polyneuropathy, unspecified (5) Multifactorial dementia: Code(s): F03.90 - Unspecified dementia, unspecified severity, without behavioral disturbance, psychotic disturbance, mood disturbance, and anxiety Category: Medical Plan Impression: 1. 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 Moderate cerebellar and cerebral atrophy with no history of significant alcohol exposure suggesting genetic etiology 3. Moderate microvascular ischemic changes 4. 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 Multifactorial mild dementia (cerebral degeneration +cerebral microvascular ischemic changes) 6. Mild spastic bladder 7. 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 Reassurance and education about her conditions 2. Control of vascular risk factors including anti-platelet agent such as baby aspirin daily, and blood pressure control. 3. Common sense measures to avoid any falls including possibility of using a cane or a walker 4. Avoid alcohol completely 5. EMG nerve conduction study to classify and great neuropathy 6. A medicine for spastic bladder can be taken if it becomes more significant issue 7. Hearing aids as loss of hearing could significantly impact her ability to cognitively function in interact 8. She is advised to explore moving to an assisted living facility as she does not have any family members or a reliable friend. Her risk of accident or getting involved in a scam is high Orders: Orders NE nerve conduction velocity Today G62.9 - Polyneuropathy, unspecified NE electromyogram (EMG) Today G62.9 - Polyneuropathy, unspecified Vitamin B12 and Folate Today F03.90 - Unspecified dementia, unspecified severity, without behavioral disturbance, psychotic disturbance, mood disturbance, and anxiety Coding Level of Care Code New Pt Level 5 (37585) Diagnoses Multifactorial gait disorder R26.89 Cerebellar atrophy G31.9 Cerebral microvascular disease I67.89 Peripheral polyneuropathy G62.9 Peripheral neuropathy type: polyneuropathy, unspecified Multifactorial dementia F03.90 Time Spent (min) 70
--- OUTSIDE RECORDS SUMMARY | 2025-09-26 02:51 | XMS_ITS | Data Portability ---
Author Organization [facility], [address] Address [address] [place] [address] Assessment No assessment recorded. Plan of Treatment Reminders Order Date Submit Date Provider Last Modified By Organization Details Last Modified Time Details Appointments None recorded. Lab rapid SARS CoV 2 Ag, QL IA, respiratory specimen 2022 023 [email or web address] _[facility], [address] [place] [address], [phone], 3 10:56:14 rapid flu (A+B) 2022 023 [email or web address] _[facility], [address] [place] [address], [place], [address], 3 10:56:14 Referral None recorded. Procedures None recorded. Surgeries None recorded. Imaging None recorded. Medication Orders prednisone 20 mg tablet 2022 023 [facility]/Pharmacy #[id number], [address] [place], [address], 3 10:56:16 Allergy Relief (fluticason e) 50 mcg/actuati on nasal spray,suspe nsion 2022 023 [facility]/Pharmacy #[id number], [address] [place], [address], 3 10:56:16 Patient TargetsNo targets recorded. Patient Instructions Encounter Date Encounter Id Patient Instructions Last Modified By Organization Details Last Modified Time 11/27/2022 [id number] Acute Sinusitis: Care Instructions zack Not available 11/27/2022 10:56:14 Sinusitis is an [...] care for yourself at home? Take an bdos-fsx-bksmuze pain medicine. Avoid Ibuprofen, Aleve and Aspirin if . If the doctor prescribed antibiotics, take them as directed. Do not stop taking them just because you feel better. You need to take the full course of antibiotics. Be careful when taking cafy-dlq-pggnvly cold or influenza (flu) medicines and Tylenol [...] wear a mask. For travel guidance, see [facility] s Travel webpage. Do not travel. Stay home and separate from others as much as possible. Use a separate bathroom, if possible. Take steps to improve ventilation at home, if possible. Don t share personal household items, like cups, [...] masking (see below). For travel guidance, see CDC s Travel webpage. Not available 11/27/2022 10:54:01 Reason for Referral None Reported. Results Created Date Observation Date Name Description Value Unit Range Abnormal Flag Note LastModifiedBy Organization Detail LastModifiedTime 11/27/1911/27/2022 rapid SARS CoV 2 Ag, QL IA, respi rator y speci men Unknown Analyte Normal =Negat gricelda Not Available [facility] [address] [place], [address], 11/27/2022 10:09:58 11/27/1911/27/2022 rapid SARS CoV 2 Ag, QL IA, respi rator y speci men Unknown Analyte negati ve Not Available [facility] [address] [place], [address], 11/27/2022 10:09:58 11/27/19 23 11/27/2022 rapid flu (A+B) Unknown Analyte Normal = Negati ve Not Available [address] [place], [place] [address]alessandra lomas [address], [place], [address], 11/27/2022 10:09:51 11/27/19 23 11/27/2022 rapid flu (A+B) Unknown Analyte Normal = Negati ve Not Available [address] [place] [address], [place], [address], 11/27/2022 10:09:51 11/27/19 23 11/27/2022 rapid flu (A+B) Unknown Analyte negati ve Not Available [address] [place] [address], [address], 11/27/2022 10:09:51 11/27/19 23 11/27/2022 rapid flu (A+B) Unknown Analyte negati ve Not Available [address] [place] [address], [place], [address], 11/27/2022 10:09:51 Result Notes None recorded. Problems Name Problem SNOMED Code Status Onset Date Resolution Date Notes Provider Name and Address Organization Details Recorded Time Arthritis 4852098 Active 2022 IRIS COUVERTIE R null, PA - [facility] 3 10:09:11 Essential hypertension 28778189 Active 2022 IRIS COUVERTIE R null, PA - [facility] 3 10:09:14 Insomnia 473388753 Active 2022 IRIS COUVERTIE R null, PA - [facility] 3 10:09:06 Problem Notes None recorded. Procedures Surgical History Date Name Laterality Status Provider Name and Address Organization Details Recorded Time appendectomy completed JANEEN JOHNSONVERTHENOK P A - [facility] 11/27/2022 10:09:43 Imaging Results None recorded. Procedure Notes None recorded. Medical Equipment None Reported. Allergies Allergen ID Allergen Name Allergen Category Reaction Reaction Severity Criticality Documentation Date Start Date Code Code System Note Provider Name and Address Organization Details Recorded Time 003486 Product containin g penicilli n (product) medicatio n rash moderate low 11/27/2022 98271 8001 SNOMED JANEEN campbell, PA - [facility] 3 10:06:55 250348 hydrochlo rothiazid e medicatio n Not available Not available Not available 11/27/2022 5487 RxNorm JANEEN campbell, PA - [facility] 3 10:07:11 [...] in Arterial blood by Pulse oximetry Systolic And Diastolic Provider Name and Address Organization Details Last Updated DateTime 3 154.94 cm 23.1 kg/m2 35472.2 7 g 97.8 [degF] 18 /min 60 /min 99 % 99 % 148/69 mm[Hg] JANEEN Espinoza PA - [facility] 3 10:11:09 Social History Question Answer Notes LastModified by Organizat ion Details LastModified Time Tobacco Smoking Status Former Smoker JANEEN campbell PA - [facility] 11/27/2022 10:09:30 What Is Your Water Source? City Information not available 11/27/2022 What Is Your Heat Source? Gas Information not available 11/27/2022 Have You Had Direct Contact, Or Contact During Intimacy, With Monkeypox Rash, Scabs, Or Body Fluids From A Person With Monkeypox? No Information not available 11/27/2022 Have You Recently Traveled Abroad? No Information not available 11/27/2022 Sex: Unknown Functional Status Question Answer Note LastModified by Organizat ion Details LastModified Time Do you use any illicit or recreational drugs? No Information not available 11/27/2022 Do you or have you ever used any other forms of tobacco or nicotine? No Information not available 11/27/2022 What is your level of alcohol consumption? None Information not available 11/27/2022 Mental Status None recorded. Family History Relationship [...] Diagnosis SNOMED-CT Code Diagnosis ICD10 Code Diagnosis IMO Codes Diagnosis Note [id number] [place] [address] [address] 11/27/2022 09:07:46 11/27/2022 11:00:30 Exposure to SARS-CoV-2 457367902 Z20.822 Acute sinusitis 02470002 J01.90 Health Concerns Section Related Observation LastModified by Organization Detai ls LastModified Time None Recorded Concern Status LastModified by Organization Details LastModified Time None Recorded Advance Directives Directive None Recorded Payers Insurance Date Sequence Insurance Name Policy Number Policy Yee Covered Member ID Yee Member ID Guarantor Name 11/27/2022 1 [facility]: MEDICARE HMO BLUE (MEDICARE REPLACEMENT HMO) [id number] Brittanie Baltazar [id number] Brittanie Baltazar Notes Date Note Type Note Provider Name and Address Organization Details Recorded Time 11/27/2022 text/html Sinus Complaints UCReported by Patient CongestionReported by Patientnasal congestion with post nasal drip x 3 days. denies nay fever or fever with chills. no SOB or respiratory distress. Aquilino Guadarrama NP [address] [place], [address], [place] - [facility] 11/27/2022 19:52:20 OBGyn Episode No OBEpisode recorded.
== END 2025-09-25 12:44 | disposition home or self-care (01) ==
LOC: HO.HSM 11:56
PROVIDERS: PCP Family Medicine; Visit Provider Psychiatry & Neurology Neurology
DX: R26.89 Other abnormalities of gait and mobility (principal); G31.9 Degenerative disease of nervous system, unspecified; I67.89 Other cerebrovascular disease; G62.9 Polyneuropathy, unspecified; F03.90 Unspecified dementia, unspecified severity, without behavioral disturbance, psychotic disturbance, mood disturbance, and anxiety
CPT/HCPCS: 99205

== ENCOUNTER → 2025-09-25 11:56 | Outpatient (BNVA) | payer MEDICARE, SELFPAY | PROVIDERS: PCP Family Medicine; Visit Provider Psychiatry & Neurology Neurology | DX: G62.9 Polyneuropathy, unspecified (principal); R26.89 Other abnormalities of gait and mobility; G31.9 Degenerative disease of nervous system, unspecified; I67.89 Other cerebrovascular disease; F03.90 Unspecified dementia, unspecified severity, without behavioral disturbance, psychotic disturbance, mood disturbance, and anxiety | CPT/HCPCS: 99202 ==

== ENCOUNTER 2025-10-30 13:20 | Outpatient (AMB) | payer MEDICARE, SELFPAY ==
--- OUTSIDE RECORDS SUMMARY | 2025-10-26 23:59 | XMS_ITS | Continuity of Care Document ---
Author Organization [facility] Jimmie Azael lt Address [address] [place] [address]- Care Team Providers Care Seismograph Helper Name Role Phone Brandon BERGER, Heron Espinoza Primary Care Physician [phone] Encounter [facility] Date(s): 09/26/25 - 10/26/25 [facility] Adult [address] [place] [address]- Encounter Type: Triage Allergies, Adverse Reactions, Alerts Substance Criticality Severity Reaction Reaction Severity Status penicillin 1 Rash Active hydroCHLOROthiazide hyponatremia Active 1tolerates cefazolin Immunizations Given and Recorded Vaccine Date Status Refusal Reason zoster vaccine, inactivated 04/30/24 Recorded zoster vaccine, inactivated 02/03/24 Recorded pneumococcal 20-valent conjugate vaccine 02/03/24 Recorded SARS-CoV-2(COVID-19)mRNA-LNP vac([id number]) 02/03/24 Recorded influenza virus vaccine, inactivated 08/25/22 [...] influenza virus vaccine, inactivated 08/21/10 Maik rded [id number] 12y+ bivalent booster vax 08/25/22 Recorded SARS-CoV-2 mRNA (cgpcjyp-pklh-claxg) vax 03/28/22 Recorded SARS-CoV-2 (COVID-19) mRNA BNT-162b2 [...] Toxoid Vaccine (oldterm) 11/08/98 Given 1Result Comment: [facility] 2Result Comment: [id number] 3Result Comment: [09/21/2018] [facility] 4Result Comment: [08/12/2016] ashley 5Result Comment: [08/26/2015] FLUZONE HIGH DOSE 6Admin Note: given at [facility] 7Admin Note: [facility] 8Admin Note: given at [facility] Medications ALPRAZolam 0.5 mg oral tablet 1-2 TABLETS, By Mouth, Daily at bedtime, PRN, # 60 tablet, Refills 2, Tot. Refills 2, Maintenance, NEEDED, 06/06/25 2:37:00 PM EDT, Route to Pharmacy Electronically, [facility]/pharmacy #[id number], 150, cm, 05/31/25 15:15:00 EDT, Height Start Date: 06/06/25 Status: Ordered Medication Dispense Status: Completed Quantity: 60.0 Unit: tablet Total Allowed Fills: 3 Fills Dispensed: 0 apixaban 2.5 mg oral tablet 1 tablet = 2.5 mg, By Mouth, 2 times a day, # 60 tablet, 0 Refills, Maintenance, 09/04/24 2:30:00 PM EDT, Partial fill upon patient request if the prescription is for a schedule II opioid drug. Start Date: 09/04/24 Status: Ordered Medication Dispense Status: Completed Quantity: 60.0 Unit: tablet Total Allowed Fills: 1 Fills Dispensed: 0 B-Plex Plus Vitamin B Complex oral tablet 1 tablet, By Mouth, Daily, 0 Refills, Maintenance, 03/24/16 2:50:24 PM EDT Start Date: 03/24/16 Status: Ordered Medication Dispense Status: Completed Total Allowed Fills: 1 Fills Dispensed: 0 Calcium Carbonate 1 tablet, By Mouth, Daily, 0 Refills, Maintenance, 04/21/16 11:04:15 AM EDT Start Date: 04/21/16 Status: Ordered Medication Dispense Status: Completed Total Allowed Fills: 1 Fills Dispensed: 0 citalopram 40 mg oral tablet 40 mg, 1, tablet, By Mouth, Daily, increase in dose, # 90 tablet, Refills 3, Tot. Refills 3, Maintenance, 03/01/25 12:06:00 PM EDT, Route to Pharmacy Electronically, [facility]/pharmacy #[id number], Partial fill upon patient request if the prescription is for a schedule II opioid drug., 150, cm, 02/19/25 13:06:00 EDT, Height Start Date: 03/01/25 Status: Ordered Medication Dispense Status: Completed Quantity: 90.0 Unit: tablet Total Allowed Fills: 4 Fills Dispensed: 0 lisinopril 40 mg oral tablet 1 tablet, By Mouth, Daily, DOSE., # 90 tablet, 3 Refills, Maintenance, 10/16/25 10:34:00 AM EST, [id number], 150, cm, 05/31/25 15:15:00 EDT, Height Start Date: 10/16/25 Status: Ordered Medication Dispense Status: Completed Quantity: 90.0 Unit: tablet Total Allowed Fills: 1 Fills Dispensed: 0 metoprolol succinate 50 mg oral capsule, extended release 3 capsule = 150 mg, By Mouth, Daily, # 90 capsule, 0 Refills, Maintenance, 09/04/24 2:31:00 PM EDT,ER Capsule, Partial fill upon patient request if the prescription is for a schedule II opioid drug. Start Date: 09/04/24 Status: Ordered Medication Dispense Status: Completed Quantity: 90.0 Unit: capsule Total Allowed Fills: 1 Fills Dispensed: 0 Multivitamin 1 tablet, By Mouth, Daily, 0 Refills, Maintenance, 03/24/16 2:49:16 PM EDT Start Date: 03/24/16 Status: Ordered Medication Dispense Status: Completed Total Allowed Fills: 1 Fills Dispensed: 0 sulfaSALAzine 500 mg oral delayed release tablet 2 tablet, By Mouth, 2 times a day, # 120 tablet, 5 Refills, 06/06/25 2:37:00 PM EDT, [facility]/pharmacy #[id number], 150, cm, 05/31/25 15:15:00 EDT, Height Start Date: 06/06/25 Status: Ordered Medication Dispense Status: Completed Quantity: 120.0 Unit: tablet Total Allowed Fills: 6 Fills Dispensed: 0 Problem List Condition Confirmation Course Effective Dates [...] Care team information Care Team Personnel Name: April Mao RN Position: [facility] Outreach Member Role: Primary Care Nurse Name: Heron Taylor MD Position: [facility] Physician - Primary Care Member Role: PCP Address: [address] [place] [address]- Telecom: Care Team Related Persons Name: MAR PALMER Name: EVERARDO MENDENHALL Insurance Providers Guarantor name: [facility] Information #: 1 Payer: [facility] Payer Identifier: NA Member Number: [id number] Group Number: [id number] Subscriber Identifier: NA Relationship to Subscriber: self Coverage Type: Medicare HMO Coverage Verification Date: NA Telecom: NA Address: NA
--- OUTSIDE RECORDS SUMMARY | 2025-10-26 23:59 | XMS_ITS | Continuity of Care Document ---
Author Organization [facility] Jimmie Azael lt Address [address] [place] [address]- Care Team Providers Care Sheet Metal Former Name Role Phone Brandon BERGER, Heron Espinoza Primary Care Physician [phone] Encounter [facility] Date(s): 09/26/25 - 10/26/25 [facility] Adult [address] [place] [address]- Encounter Type: Triage Allergies, Adverse Reactions, Alerts Substance Criticality Severity Reaction Reaction Severity Status penicillin 1 Rash Active hydroCHLOROthiazide hyponatremia Active 1tolerates cefazolin Immunizations Given and Recorded Vaccine Date Status Refusal Reason zoster vaccine, inactivated 04/30/24 Recorded zoster vaccine, inactivated 02/03/24 Recorded pneumococcal 20-valent conjugate vaccine 02/03/24 Recorded SARS-CoV-2(COVID-19)mRNA-LNP vac(qgf138) 02/03/24 Recorded influenza virus vaccine, inactivated 08/25/22 [...] influenza virus vaccine, inactivated 08/21/10 Maik rded [id number] 12y+ bivalent booster vax 08/25/22 Recorded SARS-CoV-2 mRNA (pqttysl-pzrq-btdbx) vax 03/28/22 Recorded SARS-CoV-2 (COVID-19) mRNA BNT-162b2 [...] Toxoid Vaccine (oldterm) 11/08/98 Given 1Result Comment: [facility] 2Result Comment: [id number] 3Result Comment: [09/21/2018] [facility] 4Result Comment: [08/12/2016] ashley 5Result Comment: [08/26/2015] FLUZONE HIGH DOSE 6Admin Note: given at [facility] 7Admin Note: [facility] 8Admin Note: given at [facility] Medications ALPRAZolam 0.5 mg oral tablet 1-2 TABLETS, By Mouth, Daily at bedtime, PRN, # 60 tablet, Refills 2, Tot. Refills 2, Maintenance, NEEDED, 06/06/25 2:37:00 PM EDT, Route to Pharmacy Electronically, [facility]/pharmacy #[id number], 150, cm, 05/31/25 15:15:00 EDT, Height [...] 12:06:00 PM EDT, Route to Pharmacy Electronically, [facility]/pharmacy #[id number], Partial fill upon patient request [...] 3 Refills, Maintenance, 10/16/25 10:34:00 AM EST, [facility], 150, cm, 05/31/25 15:15:00 EDT, Height Start [...] tablet, 5 Refills, 06/06/25 2:37:00 PM EDT, [facility]/pharmacy #[id number], 150, cm, 05/31/25 15:15:00 EDT, Height [...] with fosamax, managed by rheumatology Confirmed Active [facility] prescription benzodiazepine use Confirmed Active Rheumatoid arthritis 3 Confirmed Active 1mild 2mild to moderate by ECHO 05/12 3[place] Social History Social History Type Response Smoking Status Former smoker; Start ed at age: 15; Stopped at age: 50; entered on: 03/23/16 Sex Female Sex Representation Female (finding) Patient Care team information Care Team Personnel Name: April Mao RN Position: [facility] Outreach Member Role: Primary Care Nurse Name: Heron Taylor MD Position: [facility] Physician - Primary Care Member Role: PCP Address: [address] [place] [address]- Telecom: Care Team Related Persons Name: MAR PALMER Name: EVERARDO MENDENHALL Insurance Providers Guarantor name: [facility] Information #: 1 Payer: [facility] Payer Identifier: NA Member Number: [id number] Group Number: [id number] Subscriber Identifier: NA Relationship to Subscriber: self Coverage Type: Medicare HMO Coverage Verification Date: NA Telecom: NA Address: NA
--- NOTE | 2025-10-30 14:00 | MHC.OFFVIS ---
Vital Signs 10/30/25 14:01 Height 5 ft 1 in BP 160/80 H Blood Pressure Location Lt brachial Position Sitting Pulse 93 Pulse Source Pulse Oximeter Intake Visit Reasons: 6 month rs from 09/18 Carpet Inspector Required: No Allergies Penicillins (PCN) Allergy (Mild, Verified 10/30/25 14:05) RASH hydrochlorothiazide (HYDROCHLOROTHIAZIDE) Allergy (Unknown, Verified 10/30/25 14:05) RASH Medication List - Last Reconciled 10/30/25 by Mayelin Roy, BRANDI-C alprazolam 0.5 mg PO apixaban (Eliquis) 2.5 mg PO BID citalopram 20 mg PO DAILY citalopram 40 mg PO DAILY lisinopril 40 mg PO DAILY metoprolol succinate ER 150 mg (3 x 50 mg) PO DAILY sulfasalazine 1,000 mg PO BID HPI HPI 6 month rs from 09/18: Details: Brittanie is an 85-year-old female with past medical history of hypertension, chronic atrial fibrillation who presents for follow-up. Today she reports she got tired walking from the parking lot to the building today. Someone helped her into a wheelchair and brought her up to the office. She reports she has been doing generally well and ambulates with a cane. She does normal activities around her home. She does not notice heart palpitations. No chest discomfort at rest or with activity. No shortness of breath, PND, orthopnea or edema. No lightheadedness, presyncope, syncope, falls. Lives alone has to manage her home and ADLs independently. No recent falls reported Takes all meds as directed but did forget to take them today. Normally she does not forget.. No bleeding issues reported. [facility] Medical History Essential hypertension Atrial fibrillation Surgical History No pertinent past surgical history Family History Mother Heart problem Brother Heart problem Social History Patient Tobacco Use Status: Never used Tobacco Review of Systems Const All systems reviewed & are unremarkable except as noted in HPI and below ENT Denies dizziness Card Denies chest pain, Denies chest pain at rest, Denies chest pain with activity, Denies rapid heart rate, Denies pedal edema, Denies edema, Denies leg edema, Denies lightheadedness, Denies palpitations, Denies dyspnea, Denies dyspnea on exertion and Denies orthopnea Resp Denies cough, Denies dyspnea and Denies dyspnea on exertion GI Denies hematochezia and Denies change in stool character Musc Details: Ambulates with a walker, in a wheelchair today due to fatigue. Reports abnormal gait, Denies limited range of motion, Denies muscle cramps, Denies muscle weakness, Denies numbness, Denies radiating pain into limb, Denies stiffness and Denies tingling Neuro Reports abnormal gait, Denies dizziness, Denies numbness and Denies tingling Endo Denies palpitations Physical Exam Vital Signs: Last Vital Signs Pulse 93 10/30/25 14:01 BP 160/80 H 10/30/25 14:01 Const Other: Frail elderly female sitting in wheelchair General: cooperative and no acute distress Orientation/consciousness: patient oriented x3 Neck Neck: Yes normal visual inspection and Yes no JVD Resp Effort & Inspection: normal respiratory effort Auscultation: clear to auscultation bilaterally, no rales, no rhonchi and no wheezes Cardio Jugular venous distension: no JVD Rate: regular rate Rhythm: abnormal rhythm Heart sounds: S1 normal heart sound present, S2 normal heart sound present, no murmurs and no rubs Neuro General: patient oriented x3 Extrem General: Yes normal to inspection and No no pedal edema Psych Appearance: grossly normal Mental Status: mental status grossly normal Speech and movement: Normal speech and movement present Assessment & Plan Assessment & Plan (1) Atrial fibrillation: Code(s): I48.91 - Unspecified atrial fibrillation Category: Medical Plan: History of chronic atrial fibrillation, asymptomatic. Echocardiogram was done 01/04/2024 showing EF greater than 70%, moderate mitral annular calcification, mild mitral regurgitation, left atrium severely dilated. Holter monitor done 01/04/2024 for 3 days shows atrial fibrillation with average heart rate 84, 7% of the time greater than 100. EKG last visit shows atrial flutter with variable AV block, rate 71. No reports of palpitations. Continue metoprolol XL 150 mg daily. Continue Eliquis 2.5 mg b.i.d. for anticoagulation. That dose is appropriate for her age and weight. No medication changes made. Recommend biannual CBC and BMP. Cardiology follow-up 6 months, sooner if needed. (2) Essential hypertension: Code(s): I10 - Essential (primary) hypertension Category: Medical Plan: Blood pressure goal less than 130/80. Elevated today as she forgot to take her medications. The importance of strict med compliance reviewed. Continue metoprolol and lisinopril. She follows with her PCP routinely. If her blood pressure remains elevated on follow-up, then lisinopril can be increased or amlodipine added. (3) Mitral annular calcification: Code(s): I34.81 - Nonrheumatic mitral (valve) annulus calcification Category: Medical Plan: As above Plan I discussed with the patient that her chronic atrial fibrillation appears stable with no new cardiac symptoms. We will continue her current medications, metoprolol and Eliquis, without changes. Regarding the missed medication dose today, I instructed her to take her morning pills upon returning home and then resume her normal schedule tomorrow.I advised her to let us know if she develops any new chest pain, trouble breathing, or rapid heartbeats. We scheduled a follow-up visit in six months. Patient Instructions: - Continue taking your medicines as prescribed, including Metoprolol and Eliquis. - When you get home today, take the morning medicines you missed. Tomorrow, go back to your normal schedule. - Contact our office if you experience new chest pain, new difficulty breathing, or feel your heart racing. - Please follow up in our office in six months. - For future appointments, consider using the [employer] parking to avoid long walks. Patient was informed and verbally consented to the use of an ambient scribe for clinic note documentation during this visit. Visit time spent on chart review, interview, assessment, orders, documentation. Coding Level of Care Code Est Pt Level 4 (72713) Add On Problem Visit Only Diagnoses Atrial fibrillation I48.91 Essential hypertension I10 Mitral annular calcification I34.81 Time Spent (min) 28
[2025-10-30 14:01] VITALS: BP 160/80; PULSE 93
== END 2025-10-30 14:44 | disposition home or self-care (01) ==
PROVIDERS: PCP Family Medicine; Visit Provider Nurse Practitioner Family
DX: I48.91 Unspecified atrial fibrillation (principal); I10 Essential (primary) hypertension; I34.81 Nonrheumatic mitral (valve) annulus calcification
CPT/HCPCS: 99214; G2211

== ENCOUNTER → 2025-10-30 13:20 | Outpatient (BNVA) | payer MEDICARE, SELFPAY | PROVIDERS: PCP Family Medicine; Visit Provider Nurse Practitioner Family | DX: I48.20 Chronic atrial fibrillation, unspecified (principal); I10 Essential (primary) hypertension; I34.81 Nonrheumatic mitral (valve) annulus calcification; Z79.01 Long term (current) use of anticoagulants; Z79.899 Other long term (current) drug therapy | CPT/HCPCS: 99212 ==

== ENCOUNTER 2025-11-06 10:08 | Outpatient (REF) | payer MEDICARE, SELFPAY ==
--- NOTE | 2025-11-06 10:12 | EMG_ITS ---
Chief complaint: Pain in legs Referred by: Scooby Viramontes MD Procedure done: NCS and EMG bilateral lower extremities Bilateral peroneal and tibial motor studies were performed with F responses and tibial H reflexes. Bilateral superficial peroneal and sural sensory studies were performed and needle examination was performed. Findings: Motor distal latencies were dowk-us-ylzttsgsae prolonged with mild slowing of conduction velocity and moderate reduction of amplitude and peroneal study and normal in tibial studies. Sensory conduction velocities were in 20s to 30s with significant reduction of amplitude in peroneal and normal in sural. Right H-reflex was absent. 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 Codin [address] x2 MTDD
== END 2025-11-06 10:09 | disposition home or self-care (01) ==
LOC: HO.NEURO 10:08
PROVIDERS: PCP Family Medicine; Visit Provider Psychiatry & Neurology Neurology
DX: M79.604 Pain in right leg (principal); M79.605 Pain in left leg; G62.9 Polyneuropathy, unspecified
CPT/HCPCS: 95886; 95911

== ENCOUNTER → 2025-11-06 10:12 | Outpatient (BNV) | payer MEDICARE, SELFPAY | PROVIDERS: PCP Family Medicine; Visit Provider Psychiatry & Neurology Neurology | DX: G62.89 Other specified polyneuropathies (principal) | CPT/HCPCS: 95886; 95910 ==